=== PATIENT | male | born 1955 | race Caucasian/White ===

== ENCOUNTER 2019-05-01 11:55 | Observation (INO) | payer OTHER, SELFPAY ==
[2019-05-01] VITALS (15 sets, daily range): BP systolic 90–142; BP diastolic 50–91; PULSE 61–76; RESP 13–20; TEMP 35.9–37.7; O2SAT 93–98; BMI 31.0
--- NOTE | 2019-05-01 | PATH_ITS ---
[facility] Accession Number: [id number] . 01 Material submitted: . appendix - APPENDIX . 01 Clinical history: . ABD PAIN RT SIDE SINCE LAST NIGHT . 02 Diagnosis: Appendix, Appendectomy: Portion of cecum (4.0 cm in length) with no significant abnormality by gross examination. Appendix with acute appendicitis, serositis and features suggestive of rupture by gross examination. MRV 05/06/2019 0951 Local . 02 Electronically signed: . Mica Morin MD, Pathologist NPI- [id number] . 01 Gross description: . Received in formalin, labeled appendix, is a piece of cecum (4.0 x 2.2 x 1.2 cm) with an attached portion of appendix (length-3.3 cm, diameter-1.3 cm) and the distal half of the appendix (length-3.0 cm, diameter-0.9 cm). The cecal serosa is molina, smooth and shiny. The cecal mucosa is molina and unremarkable. The appendiceal serosa is keith-molina, focally eroded and partially covered in keith flaky friable exudate. The lumen contains red-brown solid friable material. The wall is up to 0.3 cm thick. The mesoappendix (up to 1.5 cm in depth) is unremarkable. No nodules, masses or lesions are identified. The resection margin is received stapled and is inked blue. Section code: (A1) resection margin with appendiceal orifice, provider service representative perpendicular sections; (A2) multiple provider service representative sections; (A3) one-half of the bivalved tip. ([id number]) /MRV 05/05/2019 1351 Local . 02 Pathologist provided ICD-10: K35.80, K35.20 . 02 CPT . 299296 Performed at: 01 [facility] [address] [place] [address], [place], [place] [id number] MD Geoff Bonilla MD Phone: [phone] Performed at: 02 [facility] [address] [place], [place] [id number] MD Yanely Alexander MD Phone: [phone]
[2019-05-01 12:16] LABS: Hematocrit 44.7 % (41-53); Hemoglobin 14.8 g/dL (13.5-17.5); Mean Corpuscular HGB Conc 33.2 % (30-36); Mean Corpuscular Hemoglobin 27.8 PG (26-34); Mean Corpuscular Volume 83.8 fL (80-100); Platelet Count 297 X10^3/uL (150-400); Red Blood Cell Count 5.34 X10^6/uL (4.5-5.9); Red Cell Distribution Width 15.4 % (11.6-14.8)
[2019-05-01 12:23] LABS: Add Manual Diff / Slide Review YES; Prothrombin Time 11.8 SECONDS (10.1-12.7); White Blood Cell Count 33.1 X10^3/uL (4.5-11.0)
[2019-05-01 12:25] LABS: PTT Partial Thromboplastin Tim 35 SECONDS (26.4-36.2)
[2019-05-01 12:31] LABS: Alanine Aminotransferase 30 IU/L (<50); Albumin 4.5 g/dL (3.5-5.0); Albumin Globulin Ratio 1.6 (1.0-2.8); Alkaline Phosphatase 57 U/L (38-126); Aspartate Aminotransferase 36 IU/L (17-59); BUN Creatinine Ratio 22.2 (6-22); Bilirubin Total 1.4 mg/dL (0.2-1.3); Blood Urea Nitrogen 20 mg/dL (9-20); Calcium 9.5 mg/dL (8.4-10.2); Carbon Dioxide 28 mmol/L (22-32); Chloride 100 mmol/L (98-107); Estimated Glomerular Filt Rate > 60.0 mL/min (>60); Globulin 2.9 g/dL (1.7-4.1); Glucose 121 mg/dL (80-110); HEMOLYSIS < 15 (0-50); Lipase 45 U/L (23-300); Potassium 4.2 mmol/L (3.4-5.1); Sodium 139 mmol/L (137-145); Total Protein 7.4 g/dL (6.3-8.2)
--- NOTE | 2019-05-01 12:38 | DI.CT.S_ITS ---
PROCEDURE: CT ABDOMEN PELVIS W CON INDICATIONS: RIGHT LOWER QUAD PAIN TECHNIQUE: After the administration of intravenous contrast, 5 mm thick sections acquired from the diaphragm to the symphysis. 5 mm coronal and sagittal reformats were acquired. For radiation dose reduction, the following was used: automated exposure control, adjustment of mA and/or kV according to patient size. COMPARISON: None. FINDINGS: Image quality: Excellent. ABDOMEN: Lung bases: Lung bases are clear. Heart size is normal. Solid organs: Liver is normal in size and enhancement. Gallbladder is within normal limits. Biliary system is non dilated. Pancreas enhances normally. Spleen is normal in size and enhancement. No adrenal nodules. Kidneys demonstrate normal size and enhancement, without hydronephrosis. Left peripelvic cysts are seen. Peritoneum and bowel: There is no bowel obstruction. There is significant enlargement of the appendix with diffuse appendiceal wall thickening and extensive periappendiceal fat stranding consistent with acute appendicitis. No discrete abscess collection. No free fluid or free air. No other area of abnormal bowel wall thickening is seen. Nodes and vessels: No retroperitoneal or mesenteric adenopathy by size criteria. Aorta and inferior vena cava are normal in size. Miscellaneous: No ventral hernias. PELVIS: Genitourinary: Bladder wall thickness is normal. Miscellaneous: No inguinal hernias or adenopathy. Bones: No suspicious bony lesions. No vertebral body compression fractures. IMPRESSION: 1. Finding is consistent with acute appendicitis. No evidence of perforation. No discrete abscess collection is seen. 2. Left peripelvic renal cysts. No hydronephrosis. Dictated by: Paulo Curtis M.D. on 05/01/2019 at 13:11 Approved by: Paulo Curtis M.D. on 05/01/2019 at 13:14
--- NOTE | 2019-05-01 12:41 | ED_ITS ---
HPI - Abdominal Pain <SUMI Ochoa - Last Filed: 05/01/19 21:58> General Chief Complaint: Abdominal Pain Stated Complaint: Abd pain rt side since lastnight Time Seen by Provider: 05/01/19 12:28 Source: patient Mode of arrival: Ambulatory History of Present Illness HPI narrative: 64yo male without a significant medical history, presents emergency department from the walk-in clinic complaining of right lower quadrant pain for the past 24-48 hours. Patient states last night he originally developed chills and umbilical abdominal pain that radiated to his right lower quadrant. Today he noticed the pain is localized dull aching pain his right lower quadrant but severity has decreased. He denies any fevers at home, nausea, vomiting, diarrhea, chest pain, dizziness, or other concerns. Patient states he usually has and normal white blood cell count as far as he is aware. Patient states he last ate a bowl of cereal around 6AM with a cup of coffee. He last had a few sips of water approximately around 1210PM today. Related Data Home Medications Medication Instructions Recorded Confirmed Otc Sleep Med 1 tab PO BEDTIME 05/01/19 05/01/19 Allergies Allergy/AdvReac Type Severity Reaction Status Date / Time No Known Drug Allergies Allergy Verified 06/19/18 19:09 Review of Systems <SUMI Ochoa - Last Filed: 05/01/19 21:58> Review of Systems Narrative: REVIEW OF SYSTEMS: GENERAL: Denies fever, chills, malaise, or wt. loss. HENT: No head trauma, sore throat, or dysphagia. EYES: No loss of vision, double vision, eye pain, or irritation. CARDIOVASCULAR: No chest pain, palpitations, or orthopnea. RESPIRATORY: No shortness of breath or cough. GASTROINTESTINAL: Complains of right lower quadrant abdominal pain, see HPI GENITOURINARY: No flank pain, urinary incontinence, hesitancy, frequency, or dysuria. MUSCULOSKELETAL: No pain, weakness, or trauma. INTEGUMENTARY: No rash, lesions, or pruritus. NEURO: No numbness, tingling, memory loss, confusion, or headaches. PSYCH: No behavior or mood changes. Patient History <SUMI Ochoa - Last Filed: 05/01/19 21:58> Medical History No significant medical problems (Acute) Social History household members: spouse Smoking Status: Never smoker alcohol intake: former Smoking Status: Never smoker Exam <SUMI Ochoa - Last Filed: 05/01/19 21:58> Initial Vital Signs Initial Vital Signs: Vital Signs Temperature 98.7 F 05/01/19 11:55 Pulse Rate 76 05/01/19 11:55 Respiratory Rate 05/01/19 11:55 Blood Pressure 140/67 05/01/19 11:55 Pulse Oximetry 98 05/01/19 11:55 PHYSICAL EXAMINATION: GENERAL: Well groomed, alert, and cooperative. Answers questions promptly and appropriately. Vital signs noted. HENT: Normocephalic, atraumatic. Hearing intact. Oral mucosa is pink and moist. EYES: Conjunctiva pink, sclera white, no periorbital swelling. CARDIOVASCULAR: S1 and S2 sounds normal. Regular rate and rhythm, no murmurs, clicks, or bruits. No pedal edema. RESPIRATORY: Normal respiratory rate, trachea midline, airway patent. No stridor, nasal flaring or accessory muscle use. Lungs are clear in all worley without wheeze, rhonchi, or crackles. GASTROINTESTINAL: Bowel sounds normoactive. Abdomen mother tenderness to right lower quadrant and umbilical area. No organomegaly, no palpable masses. GENITALURINARY: No flank tenderness. MUSCULOSKELETAL: Normal gait and coordination. Equal tone and mass bilaterally. EXTREMITIES: CMS intact, no pedal edema. SKIN: Warm, dry, soft, appropriate color for ethnicity. No lesions, rashes, or wounds to visualized areas. NEURO: Alert and Oriented X 3. Good coordination. No ataxia, or sensory deficits, or cognitive issues. PSYCH: Appropriate affect and mood. <Kelly Magallanes DO - Last Filed: 05/03/19 09:38> Initial Vital Signs Initial Vital Signs: Vital Signs Temperature 98.7 F 05/01/19 11:55 Pulse Rate 76 05/01/19 11:55 Respiratory Rate 05/01/19 11:55 Blood Pressure 140/67 05/01/19 11:55 Pulse Oximetry 98 05/01/19 11:55 Course <SUMI Ochoa - Last Filed: 05/01/19 21:58> Course Course Narrative: Patient was given IV fluids and Zosyn in the emergency department stay. He was able to ambulate without significant distress. Orders Ordered: Docusate Sodium (Colace) 100 mg PO BID [facility] Last Admin: 05/03/19 08:51 Dose: Not Given Documented by: Admin: 05/02/19 20:26 Dose: 100 mg Documented by: Admin: 05/02/19 08:21 Dose: 100 mg Documented by: ROSAS Heparin Sodium (Porcine) (Heparin) 5,000 unit SUBCUT BID [facility] Last Admin: 05/03/19 08:51 Dose: Not Given Documented by: Admin: 05/02/19 20:26 Dose: 5,000 unit Documented by: Admin: 05/02/19 08:22 Dose: 5,000 unit Documented by: ROSAS Hydromorphone HCl (Dilaudid) 0.5 mg IV Q4H PRN PRN Reason: Pain, Severe (7-10) Last Admin: 05/02/19 20:27 Dose: 0.5 mg Documented by: DEBBY Lactated Ringer's (Lactated Ringers) 1,000 mls @ 125 mls/hr IV CONT [facility] Last Admin: 05/03/19 06:54 Dose: 125 mls/hr Documented by: Infusion: 05/03/19 06:54 Dose: 125 mls/hr Documented by: Admin: 05/02/19 22:37 Dose: 125 mls/hr Documented by: Infusion: 05/02/19 21:47 Dose: 125 mls/hr Documented by: Admin: 05/02/19 13:47 Dose: 125 mls/hr Documented by: Infusion: 05/02/19 12:49 Dose: 125 mls/hr Documented by: Admin: 05/02/19 04:49 Dose: 125 mls/hr Documented by: Infusion: 05/02/19 04:49 Dose: 125 mls/hr Documented by: Admin: 05/01/19 22:25 Dose: 125 mls/hr Documented by: Infusion: 05/01/19 21:14 Dose: 0 mls/hr Documented by: Admin: 02/07/20 20:42 Dose: 125 mls/hr Documented by: Infusion: 05/01/19 20:42 Dose: 125 mls/hr Documented by: Admin: 05/01/19 17:37 Dose: 125 mls/hr Documented by: Infusion: 05/01/19 17:37 Dose: 125 mls/hr Documented by: Infusion: 05/01/19 17:12 Dose: 125 mls/hr Documented by: Admin: 05/01/19 15:12 Dose: 125 mls/hr Documented by: DARIUSZ Ondansetron HCl (Zofran) 4 mg IV Q4HR PRN PRN Reason: Nausea And Vomiting Discontinued Medications Acetaminophen (Tylenol) 975 mg PO NOW ONE Stop: 05/01/19 15:49 Last Admin: 05/01/19 17:38 Dose: 975 mg Documented by: KEYLA Bupivacaine HCl/Epinephrine Bitart (Sensorcaine 0.25% W/ Epi (Pf)) 30 ml INJ NOW ONE Stop: 05/01/19 19:58 Last Admin: 05/01/19 19:57 Dose: 30 ml Documented by: ELSI Celecoxib (Celebrex) 400 mg PO NOW ONE Stop: 05/01/19 15:49 Last Admin: 05/01/19 17:38 Dose: 400 mg Documented by: KEYLA Fentanyl (Sublimaze) 0 mcg IV Q5M PRN PRN Reason: Pain, Moderate (4-6) Gabapentin (Neurontin) 300 mg PO NOW ONE Stop: 05/01/19 15:49 Last Admin: 05/01/19 17:37 Dose: 300 mg Documented by: KEYLA Hydromorphone HCl (Dilaudid) 0 mg IV Q5MIN PRN PRN Reason: Pain, Mild (1-3) Sodium Chloride (Normal Saline 0.9%) 1,000 mls @ 1,000 mls/hr IV BOLUS ONE Stop: 05/01/19 13:45 Last Infusion: 05/01/19 14:24 Dose: 1,000 mls/hr Documented by: Admin: 05/01/19 13:04 Dose: 1,000 mls/hr Documented by: NYDIA Piperacillin/Tazobactam/Dextrose (Zosyn) 4.5 gm in 100 mls @ 200 mls/hr IV NOW ONE Stop: 05/01/19 13:53 Last Infusion: 05/01/19 14:24 Dose: 200 mls/hr Documented by: Admin: 05/01/19 13:54 Dose: 200 mls/hr Documented by: JORGE Lactated Ringer's (Lactated Ringers) 1,000 mls @ 42 mls/hr IV CONT KEVIN Last Admin: 05/01/19 22:23 Dose: Not Given Documented by: DEBBY Piperacillin/Tazobactam/Dextrose (Zosyn) 3.375 gm in 50 mls @ 100 mls/hr IV Q6H [facility] Last Admin: 05/02/19 20:26 Dose: 100 mls/hr Documented by: Infusion: 05/02/19 15:34 Dose: 100 mls/hr Documented by: Admin: 05/02/19 15:04 Dose: 100 mls/hr Documented by: Infusion: 05/02/19 13:43 Dose: 0 mls/hr Documented by: Admin: 05/02/19 08:22 Dose: 100 mls/hr Documented by: Infusion: 05/02/19 03:05 Dose: 0 mls/hr Documented by: Admin: 05/02/19 02:30 Dose: 100 mls/hr Documented by: Infusion: 05/01/19 19:38 Dose: 0 mls/hr Documented by: Admin: 05/01/19 19:31 Dose: 100 mls/hr Documented by: ZOILA Metoclopramide HCl (Reglan) 10 mg IV NOW PRN PRN Reason: Nausea And Vomiting Ondansetron HCl (Zofran) 4 mg IV NOW PRN PRN Reason: Nausea And Vomiting Consultations Consultation #1: I spoke with Dr. Fitzgerald who requested Zosyn, to remain on NPO status, and also agreed to admit patient. Consultation #2: Patient staffed with Dr. Magallanes Vital Signs Vital signs: Vital Signs - 8 hr 05/01/19 11:55 05/01/19 13:15 Temperature 98.7 F Pulse Rate 76 73 Respiratory Rate 20 19 Blood Pressure 140/67 Blood Pressure [Left Arm] 142/72 H Pulse Oximetry 98 98 <Kelly Magallanes DO - Last Filed: 05/03/19 09:38> Orders Ordered: Docusate Sodium (Colace) 100 mg PO BID [facility] Last Admin: 05/03/19 08:51 Dose: Not Given Documented by: Admin: 05/02/19 20:26 Dose: 100 mg Documented by: Admin: 05/02/19 08:21 Dose: 100 mg Documented by: ROSAS Heparin Sodium (Porcine) (Heparin) 5,000 unit SUBCUT BID [facility] Last Admin: 05/03/19 08:51 Dose: Not Given Documented by: Admin: 05/02/19 20:26 Dose: 5,000 unit Documented by: Admin: 05/02/19 08:22 Dose: 5,000 unit Documented by: ROSAS Hydromorphone HCl (Dilaudid) 0.5 mg IV Q4H PRN PRN Reason: Pain, Severe (7-10) Last Admin: 05/02/19 20:27 Dose: 0.5 mg Documented by: DEBBY Lactated Ringer's (Lactated Ringers) 1,000 mls @ 125 mls/hr IV CONT [facility] Last Admin: 05/03/19 06:54 Dose: 125 mls/hr Documented by: Infusion: 05/03/19 06:54 Dose: 125 mls/hr Documented by: Admin: 05/02/19 22:37 Dose: 125 mls/hr Documented by: Infusion: 05/02/19 21:47 Dose: 125 mls/hr Documented by: Admin: 05/02/19 13:47 Dose: 125 mls/hr Documented by: Infusion: 05/02/19 12:49 Dose: 125 mls/hr Documented by: Admin: 05/02/19 04:49 Dose: 125 mls/hr Documented by: Infusion: 05/02/19 04:49 Dose: 125 mls/hr Documented by: Admin: 05/01/19 22:25 Dose: 125 mls/hr Documented by: Infusion: 05/01/19 21:14 Dose: 0 mls/hr Documented by: Admin: 05/01/19 20:42 Dose: 125 mls/hr Documented by: Infusion: 05/01/19 20:42 Dose: 125 mls/hr Documented by: Admin: 05/01/19 17:37 Dose: 125 mls/hr Documented by: Infusion: 05/01/19 17:37 Dose: 125 mls/hr Documented by: Infusion: 05/01/19 17:12 Dose: 125 mls/hr Documented by: Admin: 05/01/19 15:12 Dose: 125 mls/hr Documented by: DARIUSZ Ondansetron HCl (Zofran) 4 mg IV Q4HR PRN PRN Reason: Nausea And Vomiting Discontinued Medications Acetaminophen (Tylenol) 975 mg PO NOW ONE Stop: 05/01/19 15:49 Last Admin: 05/01/19 17:38 Dose: 975 mg Documented by: KEYLA Bupivacaine HCl/Epinephrine Bitart (Sensorcaine 0.25% W/ Epi (Pf)) 30 ml INJ NOW ONE Stop: 05/01/19 19:58 Last Admin: 05/01/19 19:57 Dose: 30 ml Documented by: ELSI Celecoxib (Celebrex) 400 mg PO NOW ONE Stop: 05/01/19 15:49 Last Admin: 05/01/19 17:38 Dose: 400 mg Documented by: KEYLA Fentanyl (Sublimaze) 0 mcg IV Q5M PRN PRN Reason: Pain, Moderate (4-6) Gabapentin (Neurontin) 300 mg PO NOW ONE Stop: 05/01/19 15:49 Last Admin: 05/01/19 17:37 Dose: 300 mg Documented by: KEYLA Hydromorphone HCl (Dilaudid) 0 mg IV Q5MIN PRN PRN Reason: Pain, Mild (1-3) Sodium Chloride (Normal Saline 0.9%) 1,000 mls @ 1,000 mls/hr IV BOLUS ONE Stop: 05/01/19 13:45 Last Infusion: 05/01/19 14:24 Dose: 1,000 mls/hr Documented by: Admin: 05/01/19 13:04 Dose: 1,000 mls/hr Documented by: NYDIA Piperacillin/Tazobactam/Dextrose (Zosyn) 4.5 gm in 100 mls @ 200 mls/hr IV NOW ONE Stop: 05/01/19 13:53 Last Infusion: 05/01/19 14:24 Dose: 200 mls/hr Documented by: Admin: 05/01/19 13:54 Dose: 200 mls/hr Documented by: JORGE Lactated Ringer's (Lactated Ringers) 1,000 mls @ 42 mls/hr IV CONT [facility] Last Admin: 05/01/19 22:23 Dose: Not Given Documented by: DEBBY Piperacillin/Tazobactam/Dextrose (Zosyn) 3.375 gm in 50 mls @ 100 mls/hr IV Q6H [facility] Last Admin: 05/02/19 20:26 Dose: 100 mls/hr Documented by: Infusion: 05/02/19 15:34 Dose: 100 mls/hr Documented by: Admin: 05/02/19 15:04 Dose: 100 mls/hr Documented by: Infusion: 05/02/19 13:43 Dose: 0 mls/hr Documented by: Admin: 05/02/19 08:22 Dose: 100 mls/hr Documented by: Infusion: 05/02/19 03:05 Dose: 0 mls/hr Documented by: Admin: 05/02/19 02:30 Dose: 100 mls/hr Documented by: Infusion: 05/01/19 19:38 Dose: 0 mls/hr Documented by: Admin: 05/01/19 19:31 Dose: 100 mls/hr Documented by: ZOILA Metoclopramide HCl (Reglan) 10 mg IV NOW PRN PRN Reason: Nausea And Vomiting Ondansetron HCl (Zofran) 4 mg IV NOW PRN PRN Reason: Nausea And Vomiting Vital Signs Vital signs: Vital Signs - 8 hr 05/01/19 11:55 05/01/19 13:15 Temperature 98.7 F Pulse Rate 76 73 Respiratory Rate 20 19 Blood Pressure 140/67 Blood Pressure [Left Arm] 142/72 H Pulse Oximetry 98 98 MDM - Abdominal Pain <SUMI Ochoa - Last Filed: 05/01/19 21:58> Medical Records Attestation: I reviewed the patient's medical records. Lab Data Attestation: I reviewed the patient's lab results. Result diagrams: 05/03/19 05:00 05/01/19 12:08 Labs: Lab Results 05/01/19 05/01/19 05/01/19 Range/Units 12:08 12:08 12:08 WBC 33.1 H* (4.5-11.0) X10^3/uL RBC 5.34 (4.5-5.9) X10^6/uL Hgb 14.8 (13.5-17.5) g/dL Hct 44.7 (41-53) % MCV 83.8 (80-100) fL MCH 27.8 (26-34) PG MCHC 33.2 (30-36) % RDW 15.4 H (11.6-14.8) % Plt Count 297 (150-400) X10^3/uL Neut % (Auto) Not Reportable Lymph % (Auto) Not Reportable Rowan % (Auto) Not Reportable Eos % (Auto) Not Reportable Baso % (Auto) Not Reportable Lymph # (Auto) Not Reportable Rowan # (Auto) Not Reportable Baso # (Auto) Not Reportable Total Counted 100 Seg Neutrophils % 86.0 H (38-70) % Band Neutrophils % 3.0 (3-7) % Lymphocytes % (Manual) 3.0 L (25-45) % Atypical Lymphs % 3.0 H ( - 0) % Monocytes % (Manual) 4.0 (2-11) % Eosinophils % (Manual) 1.0 L (2-4) % Neutrophils # (Manual) 99377 H (5749-6556) /uL RBC Morphology See below Anisocytosis 1+ H PT 11.8 (10.1-12.7) SECONDS INR 1.0 (0.9-1.3) APTT 35 (26.4-36.2) SECONDS Sodium 139 (137-145) mmol/L Potassium 4.2 (3.4-5.1) mmol/L Chloride 100 (98-107) mmol/L Carbon Dioxide 28 (22-32) mmol/L BUN 20 (9-20) mg/dL Creatinine 0.90 (0.66-1.25) mg/dL Estimated GFR > 60.0 (>60) mL/min BUN/Creatinine Ratio 22.2 H (6-22) Glucose 121 H (80-110) mg/dL Calcium 9.5 (8.4-10.2) mg/dL Total Bilirubin 1.4 H (0.2-1.3) mg/dL AST 36 (17-59) IU/L ALT 30 (<50) IU/L Alkaline Phosphatase 57 (38-126) U/L Total Protein 7.4 (6.3-8.2) g/dL Albumin 4.5 (3.5-5.0) g/dL Globulin 2.9 (1.7-4.1) g/dL Albumin/Globulin Ratio 1.6 (1.0-2.8) Lipase 45 (23-300) U/L Imaging Data CT scan - abdomen/pelvis: Radiologist's Impression: [address] [address] [address] Scan Report Signed Patient: Damian Godoy HMR#: [id number] : 6Acct:[id number] Age/Sex: 64 / MDate of Service: 05/01/19 Loc: ED Accession Number: [id number] Procedure: CT abdomen pelvis w con Ordering Provider: Maine Chauhan PROCEDURE: CT ABDOMEN PELVIS W CON INDICATIONS: RIGHT LOWER QUAD PAIN TECHNIQUE: After the administration of intravenous contrast, 5 mm thick sections acquired from the diaphragm to the symphysis. 5 mm coronal and sagittal reformats were acquired. For radiation dose reduction, the following was used: automated exposure control, adjustment of mA and/or kV according to patient size. COMPARISON: None. FINDINGS: Image quality: Excellent. ABDOMEN: Lung bases: Lung bases are clear. Heart size is normal. Solid organs: Liver is normal in size and enhancement. Gallbladder is within normal limits. Biliary system is non dilated. Pancreas enhances normally. Spleen is normal in size and enhancement. No adrenal nodules. Kidneys demonstrate normal size and enhancement, without hydronephrosis. Left peripelvic cysts are seen. Peritoneum and bowel: There is no bowel obstruction. There is significant enlargement of the appendix with diffuse appendiceal wall thickening and extensive periappendiceal fat stranding consistent with acute appendicitis. No discrete abscess collection. No free fluid or free air. No other area of abnormal bowel wall thickening is seen. Nodes and vessels: No retroperitoneal or mesenteric adenopathy by size criteria. Aorta and inferior vena cava are normal in size. Miscellaneous: No ventral hernias. PELVIS: Genitourinary: Bladder wall thickness is normal. Miscellaneous: No inguinal hernias or adenopathy. Bones: No suspicious bony lesions. No vertebral body compression fractures. IMPRESSION: 1. Finding is consistent with acute appendicitis. No evidence of perforation. No discrete abscess collection is seen. 2. Left peripelvic renal cysts. No hydronephrosis. Dictated by: Paulo Curtis M.D. on 05/01/2019 at 13:11 Approved by: Paulo Curtis M.D. on 05/01/2019 at 13:14 [facility] Narrative Medical decision making narrative: This is a 64-year-old male presents to the emergency department for right lower quadrant pain for the past 2 days. Patient's exam was concerning for appendicitis, laboratory work that elevated white blood count of 33, and inflammatory changes on CT consistent with appendicitis. Less likely other acute abdominal etiology such as pancreatitis, cholecystitis, or incarcerated bowel due to lack of findings on CT and lack of pain in other areas on examination. Patient was admitted to Dr. Fitzgerald. He remained hemodynamically stable throughout the emergency department stay. He was given fluids and IV antibiotics and kept NPO. Patient agreed with plan of care verbalized understanding. <Kelly Magallanes, DO - Last Filed: 05/03/19 09:38> Lab Data Labs: Lab Results 05/01/19 05/01/19 05/01/19 Range/Units 12:08 12:08 12:08 WBC 33.1 H* (4.5-11.0) X10^3/uL RBC 5.34 (4.5-5.9) X10^6/uL Hgb 14.8 (13.5-17.5) g/dL Hct 44.7 (41-53) % MCV 83.8 (80-100) fL MCH 27.8 (26-34) PG MCHC 33.2 (30-36) % RDW 15.4 H (11.6-14.8) % Plt Count 297 (150-400) X10^3/uL Neut % (Auto) Not Reportable Lymph % (Auto) Not Reportable Rowan % (Auto) Not Reportable Eos % (Auto) Not Reportable Baso % (Auto) Not Reportable Lymph # (Auto) Not Reportable Rowan # (Auto) Not Reportable Baso # (Auto) Not Reportable Total Counted 100 Seg Neutrophils % 86.0 H (38-70) % Band Neutrophils % 3.0 (3-7) % Lymphocytes % (Manual) 3.0 L (25-45) % Atypical Lymphs % 3.0 H ( - 0) % Monocytes % (Manual) 4.0 (2-11) % Eosinophils % (Manual) 1.0 L (2-4) % Neutrophils # (Manual) 25889 H (7485-1300) /uL RBC Morphology See below Anisocytosis 1+ H PT 11.8 (10.1-12.7) SECONDS INR 1.0 (0.9-1.3) APTT 35 (26.4-36.2) SECONDS Sodium 139 (137-145) mmol/L Potassium 4.2 (3.4-5.1) mmol/L Chloride 100 (98-107) mmol/L Carbon Dioxide 28 (22-32) mmol/L BUN 20 (9-20) mg/dL Creatinine 0.90 (0.66-1.25) mg/dL Estimated GFR > 60.0 (>60) mL/min BUN/Creatinine Ratio 22.2 H (6-22) Glucose 121 H (80-110) mg/dL Calcium 9.5 (8.4-10.2) mg/dL Total Bilirubin 1.4 H (0.2-1.3) mg/dL AST 36 (17-59) IU/L ALT 30 (<50) IU/L Alkaline Phosphatase 57 (38-126) U/L Total Protein 7.4 (6.3-8.2) g/dL Albumin 4.5 (3.5-5.0) g/dL Globulin 2.9 (1.7-4.1) g/dL Albumin/Globulin Ratio 1.6 (1.0-2.8) Lipase 45 (23-300) U/L Discharge Plan Departure Patient Disposition: Admitted As Inpatient Clinical Impression: Acute appendicitis Qualifiers: Acute appendicitis type: other Qualified Code(s): K35.890 - Other acute appendicitis without perforation or gangrene Discharge Date/Time: 05/01/19 14:10 Instructions: DI for an Appendectomy, [facility]: Wound Care Referrals: Nate Milan MD [Primary Care Provider] - Maddie Fitzgerald MD [Physician] - (please make a follow up appointment in two weeks) Admit Date/Time: 05/01/19 13:39 Admit Provider: Maddie Fitzgerald
[2019-05-01 12:49] LABS: Neutrophils Absolute Manual 29459 /uL (3000-5900); Total Cells Counted 100
[2019-05-01 12:50] LABS: Anisocytosis 1+
[2019-05-01] MEDS: SODIUM CHLORIDE 0.9% 1,000 ML 1000 ML IV (13:04)
--- NOTE | 2019-05-01 13:28 | P.HP_ITS ---
History of Present Illness History of Present Illness Date Patient Seen: 05/01/19 Time Patient Seen: 13:28 Chief complaint: Abd pain rt side since lastnight Narrative: This is a 64yo man without a significant medical history, who presented to the ER today with 2 days of periumbilical pain which gradually became focal in the right lower quadrant this morning. He had some subjective chills. He denies any fevers at home, nausea, vomiting, diarrhea, chest pain, dizziness, or other concerns. In the ER he had a CT scan which is consistent with non perforated appendicitis. In the ER his white blood cell count was 33. He ate cereal it 6:00 a.m. this morning, and had some water and coffee this morning. He denies dysuria, constipation, diarrhea. ROS: Thirteen system review is otherwise negative other than as mentioned below and in HPI. PE: GENERAL: Well groomed and cooperative. Appears stated age. Answers questions promptly and appropriately. Vital signs noted. HENT: Normocephalic, atraumatic. Hearing intact. Oral mucosa is pink and moist. EYES: Conjunctiva pink, sclera white, no periorbital swelling. CARDIOVASCULAR: Regular rate. No pedal edema. RESPIRATORY: Non-tachypneic, breathing comfortably on room air. GASTROINTESTINAL: Abdomen soft and non-distended; focal tenderness to palpation in the right lower quadrant, negative Rovsing sign, no tenderness in the other quadrants GENITALURINARY: No flank tenderness. MUSCULOSKELETAL: Equal tone and mass bilaterally. SKIN: Warm, dry, soft, appropriate color for ethnicity. No other lesions, rashes, or wounds. NEURO: Alert and Oriented X 3. No gross sensory deficits, or cognitive issues. PSYCH: Appropriate affect and mood. Patient History Family & Social History Safety & Behavioral: Feels Safe in Current Yes Environment Tobacco & Substance use: Smoking Status Never smoker Meds Home Medications and Allergies Home Medications Medication Instructions Recorded Confirmed Type Otc Sleep Med 1 tab PO BEDTIME 05/01/19 05/01/19 History Allergies Allergy/AdvReac Type Severity Reaction Status Date / Time No Known Drug Allergies Allergy Verified 06/19/18 19:09 Exam Vital Signs (past 8 hours): - 05/01/19 11:55 05/01/19 13:15 Temperature 98.7 F Pulse Rate 76 73 Respiratory Rate 20 19 Blood Pressure 140/67 Blood Pressure [Left Arm] 142/72 H Pulse Oximetry 98 98 Oxygen Delivery Method Room Air,Nasal Cannula Objective ECG Impression: CT scan: Reviewed, Acute appendicitis, renal cysts Labs Result Diagrams: 05/01/19 12:08 05/01/19 12:08 Labs: Laboratory Results - last 24 hr 05/01/19 05/01/19 05/01/19 12:08 12:08 12:08 WBC 33.1 H* RBC 5.34 Hgb 14.8 Hct 44.7 MCV 83.8 MCH 27.8 MCHC 33.2 RDW 15.4 H Plt Count 297 Neut % (Auto) Not Reportable Lymph % (Auto) Not Reportable [place] % (Auto) Not Reportable Eos % (Auto) Not Reportable Baso % (Auto) Not Reportable Lymph # (Auto) Not Reportable [place] # (Auto) Not Reportable Baso # (Auto) Not Reportable Total Counted 100 Seg Neutrophils % 86.0 H Band Neutrophils % 3.0 Lymphocytes % (Manual) 3.0 L Atypical Lymphs % 3.0 H Monocytes % (Manual) 4.0 Eosinophils % (Manual) 1.0 L Neutrophils # (Manual) 54130 H RBC Morphology See below Anisocytosis 1+ H PT 11.8 INR 1.0 APTT 35 Sodium 139 Potassium 4.2 Chloride 100 Carbon Dioxide 28 BUN 20 Creatinine 0.90 Estimated GFR > 60.0 BUN/Creatinine Ratio 22.2 H Glucose 121 H Calcium 9.5 Total Bilirubin 1.4 H AST 36 ALT 30 Alkaline Phosphatase 57 Total Protein 7.4 Albumin 4.5 Globulin 2.9 Albumin/Globulin Ratio 1.6 Lipase 45 Assessment & Plan Assessment and plan (1) Acute appendicitis: Qualifiers: Acute appendicitis type: other Qualified Code(s): K35.890 - Other acute appendicitis without perforation or gangrene; K35.89 - Other acute appendicitis Current visit: Yes Status: Acute Assessment & Plan narrative: This is 64-year-old man with acute appendicitis. Options and alternatives for treatment were discussed. Risks and benefits of laparoscopic possible appendectomy were discussed with the patient including risk of bleeding, infection, damage to nearby structures, need for additional procedures, abscess, hernia, need for open operation, need for prolonged hospitalization. The patient desires to proceed with his appendectomy. Plan: IV fluids IV pain meds, antiemetics as needed IV Zosyn Plan for appendectomy this evening Time Spent With Patient Time with patient: 25 - 35 minutes Quality VTE Deep Vein Thrombosis/Pulmonary Embolism Present on Admission: No
[2019-05-01] MEDS: PIPERACILLIN-TAZO 4.5 GM/100 ML FROZ.PIGGY IV (13:54)
[2019-05-01 14:29] LABS: Appearance Urine UA CLEAR; Bilirubin Urine UA NEGATIVE (NEGATIVE); Color Urine UA YELLOW; Glucose Urine UA NEGATIVE (Negative); Ketones Urine UA NEGATIVE (NEGATIVE); Leukocyte Esterase Urine UA NEGATIVE (NEGATIVE); Nitrite Urine UA NEGATIVE (Negative); Occult Blood Urine UA NEGATIVE (Negative); Protein Urine UA NEGATIVE (Negative); Specific Gravity Urine UA 1.015 (1.000-1.035); Urobilinogen Urine UA 0.2 E.U./dL (0.2); pH Urine UA 6.5 (4.5-8.0)
[2019-05-01] MEDS: LACTATED RINGERS 1,000 ML 125 ML IV ×4 (15:12→22:25)
--- NOTE | 2019-05-01 15:24 | PC.ADMIT ---
[address] [facility] Admission Note: The patient,Damian Godoy,64 y/o, was given written information regarding hospital policies, unit procedures and contact persons. Patient's smoking status: Never smoker. Vital Signs - 8 hr 05/01/19 11:55 05/01/19 13:15 05/01/19 14:25 Temperature 98.7 F 99.0 F Pulse Rate 76 73 75 Respiratory Rate 20 19 16 Blood Pressure 140/67 140/91 H Blood Pressure [Left Arm] 142/72 H Pulse Oximetry 98 98 98 05/01/19 14:27 Temperature Pulse Rate 74 Respiratory Rate 17 Blood Pressure 140/71 Blood Pressure [Left Arm] Pulse Oximetry 98 Patient stated a pain level of 3/10, Dr Fitzgerald came in to see him and scheduled surgery for around 5pm. Locked up wallet, keys, and wedding ring in the safe, cellphone is still with patient. Patient is conversing easily and is pleasant. Patient's mother arrived at 3:20. Patient complains his pain is slightly increasing but is better if he stay off of his right side. NPO since breakfast this morning.
[2019-05-01] MEDS: GABAPENTIN 300 MG CAPSULE PO (17:37)
[2019-05-01] MEDS: CELECOXIB 200 MG CAPSULE 400 MG PO (17:38)
[2019-05-01] MEDS: ACETAMINOPHEN 325 MG TABLET 975 MG PO (17:38)
[2019-05-01] MEDS: PIPERACILLIN-TAZO 3.375 GM/50 ML FROZ.PIGGY IV (19:31)
--- NOTE | 2019-05-01 19:49 | SUR.OPER ---
Supine on padded OR bed, head on pillow, arm padded and tucked at side, legs uncrossed, safety belt at thigh, tape over blanket over lower legs .
[2019-05-01] MEDS: BUPIVACAINE 0.25% W/ EPI 30 ML VIAL INJ (19:57)
--- NOTE | 2019-05-01 20:43 | PM.OP.1 ---
Operative Date/Time/Diagnoses Date of procedure: 05/01/19 Time of procedure: 20:43 Pre-op diagnosis: Acute appendicitis Post-op diagnosis: other (acute appendicitis, thickened cecum, gangrenous appendix without perforation) Procedure & Clinicians Procedure: Laparoscopic appendectomy and partial cecectomy Same procedure as scheduled: Yes Indications: Gangrenous appendicitis, and thickened cecum Surgeon: Maddie Redmond Yes if Unassisted: Yes Anesthesia Type: General Operative Notes Findings: Gangrenous appendix, thickened cecum, no perforation, no abscess Specimen(s): other (Appendix and distal cecum) Estimated Blood Loss (mL): 5 Blood products transfused: none Procedure in detail: The patient was brought into the operating room and placed supine on the OR table. Sequential compression devices were placed on both legs and turned on. Appropriate perioperative antibiotics were given prior to the start of surgery. General anesthesia was induced the patient was intubated. Aldridge catheter was placed sterilely in the bladder. The abdomen was prepped and draped in sterile fashion. Surgical time-out was conducted. Local anesthetic was injected under the skin just superior to the umbilicus and a 5 mm vertical incision was made at this site. The umbilical stalk was grasped with a Prasanna and elevated. A Veress needle was passed through the fascia into proper position. The position was tested with a saline drop test which was appropriate for intra-abdominal Veress needle placement. The abdomen was then insufflated in the usual fashion. Once insufflated to 15 mm Hg the Veress needle was removed and a 5 mm optical trocar was placed under direct vision using a 5 mm 30 degree scope. Once the camera was inside the abdomen I took a look around. There was no injury from port placement. Two additional ports were placed in a similar fashion in the suprapubic position and left lower quadrant. The umbilical port was upsized to a 12 mm port. In the right lower quadrant there were thickened loops of bowel overlying the cecum, stuck in place with inflammatory adhesions. The loops of bowel were carefully from each other without injury to the bowel loops. Once the adherent bowel loops were taken down, the appendix was exposed. It was hard, thickened, and clearly necrotic. There was no abscess or perforation seen. The patient was placed in Trendelenburg position with right side up. Starting at the distal tip of the appendix I dissected it free from the abdominal wall and the colon using blunt and sharp dissection with [place] ligasure. Once I came back to the base of the appendix, I dealt with the surrounding phlegmon. I carefully dissected out, protecting the small bowel and the cecum. At no time were we near the ureter. After prolonged dissection the base of the appendix came fully into view where it came into the cecum. The cecum was firm and thickened where the appendix entered onto it. I could not simply take the appendix, but had to take part of the cecum in order to removed the entire abnormal structure associated with the appendix. A blue load 60 mm endoscopic stapler was brought into the field and used to transect the distal cecum and appendix. The staple line looked well closed and hemostatic. There was good hemostasis, and all free fluid and blood were suctioned out. There was no spillage of stool, no pus, and no abscess. I did not think a drain would be needed. I then used the laparoscopic suture Passer and closed the umbilical port site with 0 Vicryl suture through the fascia. At this point the insufflation was removed from the abdomen and the port sites were closed with, 3 O Vicryl in the subcutaneous layers, and 4 Monocryl in the skin. Each port site was sealed with Dermabond. Local anesthetic was given at each of the port sites and in the fascia. This concluded the procedure. At this point the needle sponge and instrument counts were correct. The appendix was passed off the table for pathology. Patient was awakened from anesthesia and extubated. She was transferred to the postanesthesia care unit in stable condition. Complications: none Post-operative Condition: stable Disposition: Acute Care
--- NOTE | 2019-05-01 21:15 | SUR.PHASEI ---
Stable PACU, no pain, no nausea, soft belly. Transported back to room 203.
--- NOTE | 2019-05-01 21:32 | SUR.PHASEI ---
Pt left with Trudy and left in stable condition.
--- NOTE | 2019-05-02 00:33 | PC.NURSE ---
Addendum entered by Karen Leon R.N. 05/02/19 04:54: Slept at intervals. Continues to deny pain. Is complaining of some dysuria with urination this morning; encouraged to increase po fluid intake and if dysuria continues to let RN or MD know. Original Note: Patient is alert and oriented. Breath sounds CTA with RA sat of 96%. HRR. Denies nausea. BT hypoactive but states he has passed flatus since return from surgery. Has been voiding per urinal; denies dysuria, frequency or urgency. Is able to move himself in bed. Instructed to call for assistance if needing to get out of bed due to IV line and SCD's; verbalizes understanding. Lap incisions to abdomen x 3 all well approximated, dermabonded and without redness. Wearing bilateral calf SCD's. Denies pain at present time.
[2019-05-02 00:46] VITALS: BP 111/67; PULSE 59; RESP 16; TEMP 36.2; O2SAT 94
[2019-05-02] MEDS: PIPERACILLIN-TAZO 3.375 GM/50 ML FROZ.PIGGY IV ×4 (02:30→20:26)
[2019-05-02 04:47] VITALS: BP 104/49; PULSE 59; RESP 18; TEMP 36.1; O2SAT 95
[2019-05-02] MEDS: LACTATED RINGERS 1,000 ML 125 ML IV ×3 (04:49→22:37)
[2019-05-02 06:10] LABS: Hematocrit 41.5 % (41-53); Hemoglobin 13.7 g/dL (13.5-17.5); Mean Corpuscular Hemoglobin 27.9 PG (26-34); Mean Corpuscular Volume 84.5 fL (80-100); Platelet Count 276 X10^3/uL (150-400); Red Blood Cell Count 4.91 X10^6/uL (4.5-5.9); Red Cell Distribution Width 15.7 % (11.6-14.8)
[2019-05-02 06:24] LABS: Add Manual Diff / Slide Review YES
[2019-05-02 06:25] LABS: White Blood Cell Count 32.2 X10^3/uL (4.5-11.0)
[2019-05-02 06:38] LABS: Neutrophils Absolute Manual 29946 /uL (3000-5900); Total Cells Counted 100
[2019-05-02 06:39] LABS: Anisocytosis 1+
[2019-05-02 07:30] VITALS: BP 116/72; PULSE 61; RESP 19; TEMP 36.6; O2SAT 95
[2019-05-02] MEDS: DOCUSATE 100 MG CAPSULE PO ×2 (08:21→20:26)
[2019-05-02] MEDS: HEPARIN 5,000 UNIT/ML VIAL 5000 UNIT SUBCUT ×2 (08:22→20:26)
--- NOTE | 2019-05-02 08:57 | PC.NURSE ---
Addendum entered by Mary Mckeon R.N. 05/02/19 14:54: Pts wbc 32.7... phone and stated that she will be up around 1630 after her next case to talk to patient about his labs and will decide if she wants him to go home this evening or tomorrow morning. Addendum entered by Mary Mckeon R.N. 05/02/19 12:22: Patient denies discomfort at this time. He just ate all of his lunch and denies nausea. Up and ambulated in the halls. will be back later to visit. Original Note: Pt denies pain, states that he does not need anything at this time. IVF infusing. into see patient and states that she is going to order some labs at 1400 and this will determine if patient can go home this afternoon. He has 3 small incision sites that are durmobonded together. Using urinal at bedside and ivf infusing.
--- NOTE | 2019-05-02 09:52 | P.PN_ITS ---
Subjective Subjective Date Patient Seen: 05/02/19 Time Patient Seen: 09:52 Interval history: No acute events overnight. Pt says he feels much better this AM. Denies fevers, chills, and says he does not need any pain meds. Exam Vital Signs (past 8 hours): - 05/02/19 04:47 05/02/19 07:30 Temperature 97.0 F L 97.9 F Pulse Rate 59 L 61 Respiratory Rate 18 19 Blood Pressure 104/49 L 116/72 Pulse Oximetry 95 95 Oxygen Delivery Method Room Air Oxygen Flow Rate 0 Narrative Exam Narrative: GENERAL: Alert, oriented, comfortable, nontoxic HENT: Normocephalic, atraumatic. Hearing intact. Oral mucosa is pink and moist. EYES: Conjunctiva pink, sclera white, no periorbital swelling. CARDIOVASCULAR: Regular rate. No pedal edema. RESPIRATORY: Non-tachypneic, breathing comfortably on room air. GASTROINTESTINAL: Abdomen soft and non-distended; incisions clean dry and intac t, appropriate tenderness to palpation for postop day 1, very minimal tenderness GENITALURINARY: No flank tenderness. MUSCULOSKELETAL: Equal tone and mass bilaterally. SKIN: Warm, dry, soft, appropriate color for ethnicity. No other lesions, rashes, or wounds. NEURO: Alert and Oriented X 3. No gross sensory deficits, or cognitive issues. PSYCH: Appropriate affect and mood. Objective Labs Result Diagrams: 05/02/19 05:49 05/01/19 12:08 Labs: Laboratory Results - last 24 hr 05/01/19 05/01/19 05/01/19 12:08 12:08 12:08 WBC 33.1 H* RBC 5.34 Hgb 14.8 Hct 44.7 MCV 83.8 MCH 27.8 MCHC 33.2 RDW 15.4 H Plt Count 297 Neut % (Auto) Not Reportable Lymph % (Auto) Not Reportable [place] % (Auto) Not Reportable Eos % (Auto) Not Reportable Baso % (Auto) Not Reportable Lymph # (Auto) Not Reportable [place] # (Auto) Not Reportable Baso # (Auto) Not Reportable Total Counted 100 Seg Neutrophils % 86.0 H Band Neutrophils % 3.0 Lymphocytes % (Manual) 3.0 L Atypical Lymphs % 3.0 H Monocytes % (Manual) 4.0 Eosinophils % (Manual) 1.0 L Basophils % (Manual) Neutrophils # (Manual) 12235 H RBC Morphology See below Anisocytosis 1+ H PT 11.8 INR 1.0 APTT 35 Sodium 139 Potassium 4.2 Chloride 100 Carbon Dioxide 28 BUN 20 Creatinine 0.90 Estimated GFR > 60.0 BUN/Creatinine Ratio 22.2 H Glucose 121 H Calcium 9.5 Total Bilirubin 1.4 H AST 36 ALT 30 Alkaline Phosphatase 57 Total Protein 7.4 Albumin 4.5 Globulin 2.9 Albumin/Globulin Ratio 1.6 Lipase 45 Urine Color Urine Appearance Urine pH Ur Specific [place] Urine Protein Urine Glucose (UA) Urine Ketones Urine Occult Blood Urine Nitrate Urine Bilirubin Urine Urobilinogen Ur Leukocyte Esterase 05/01/19 05/02/19 13:50 05:49 WBC 32.2 H* RBC 4.91 Hgb 13.7 Hct 41.5 MCV 84.5 MCH 27.9 MCHC 33.0 RDW 15.7 H Plt Count 276 Neut % (Auto) Not Reportable Lymph % (Auto) Not Reportable [place] % (Auto) Not Reportable Eos % (Auto) Not Reportable Baso % (Auto) Not Reportable Lymph # (Auto) Not Reportable [place] # (Auto) Not Reportable Baso # (Auto) Not Reportable Total Counted 100 Seg Neutrophils % 91.0 H Band Neutrophils % 2.0 L Lymphocytes % (Manual) 2.0 L Atypical Lymphs % Monocytes % (Manual) 4.0 Eosinophils % (Manual) Basophils % (Manual) 1.0 Neutrophils # (Manual) 49424 H RBC Morphology See below Anisocytosis 1+ H PT INR APTT Sodium Potassium Chloride Carbon Dioxide BUN Creatinine Estimated GFR BUN/Creatinine Ratio Glucose Calcium Total Bilirubin AST ALT Alkaline Phosphatase Total Protein Albumin Globulin Albumin/Globulin Ratio Lipase Urine Color Yellow Urine Appearance Clear Urine pH 6.5 Ur Specific [place] 1.015 Urine Protein Negative Urine Glucose (UA) Negative Urine Ketones Negative Urine Occult Blood Negative Urine Nitrate Negative Urine Bilirubin Negative Urine Urobilinogen 0.2 Ur Leukocyte Esterase Negative Assessment & Plan Assessment and plan (1) Status post appendectomy: Current visit: Yes Status: Acute (2) Acute appendicitis: Qualifiers: Acute appendicitis type: other Qualified Code(s): K35.890 - Other acute appendicitis without perforation or gangrene; K35.89 - Other acute appendicitis Current visit: Yes Status: Acute Assessment & Plan narrative: Patient looks well after his appendectomy last evening, but his white count is still high. Expected has not had a chance to come down since it was drawn less than 12 hours after his appendectomy. His appendix was gangrenous, which is a good explanation for his white count of 33 yesterday. We will go ahead and let him eat, and will continue his Zosyn for perioperative dosing up to 24 hours. We will recheck a CBC this afternoon, and if it is reassuring, we will consider letting him go home this afternoon. Stool softener DVT prophylaxis IV antibiotic CBC at 2:00 p.m. Ambulate frequently Dispo pending improved CBC, and reassuring vitals and exam this evening Time Spent With Patient Time with patient: 25 - 35 minutes Quality VTE Deep Vein Thrombosis/Pulmonary Embolism Present on Admission: No
[2019-05-02 12:06] VITALS: BP 107/81; PULSE 63; RESP 18; TEMP 37.2; O2SAT 95
[2019-05-02 14:08] LABS: Hematocrit 40.3 % (41-53); Hemoglobin 13.4 g/dL (13.5-17.5); Mean Corpuscular HGB Conc 33.3 % (30-36); Platelet Count 278 X10^3/uL (150-400); Red Cell Distribution Width 15.6 % (11.6-14.8)
[2019-05-02 14:14] LABS: Add Manual Diff / Slide Review YES; White Blood Cell Count 32.7 X10^3/uL (4.5-11.0)
[2019-05-02 15:20] VITALS: BP 110/59; PULSE 68; RESP 17; TEMP 37; O2SAT 96
[2019-05-02 15:47] LABS: Total Cells Counted 100
[2019-05-02 16:22] LABS: Neutrophils Absolute Manual 29430 /uL (3000-5900)
--- NOTE | 2019-05-02 16:22 | CM.DANOTE ---
Addendum entered by Melissa Bell LPN 05/03/19 11:01: Case again discussed in Team Rounds with a d/c to home order noted and team members noting that pt was doing well. A check in post Rounds shows that pt did leave for home at 1000. Original Note: Discharge Planning/Care Management DCP: assessment: case received, EMR reviewed. Discussed in Team Rounds. Pt is a 64 year old male who admitted yesterday afternoon to care of [facility]: Dr. Fitzgerald He was taken to surgery later that evening for a Laproscopic Appendectomy: gangrenous with no perforation or abscess found and a partial cecectomy. Payer: [employer] Admission status: In Review per UR SWHETA Chapman. A check in now show that pt is doing well and Dr. Fitzgerald will be up later this afternoon to see if pt is ok for d/c to home or if he needs to stay overnight. P: check in with pt is he is still here tomorrow and follow prn. CM Discharge Assessment Start: 05/02/19 16:20 Freq: Status: Active Protocol: Document 05/02/19 16:21 ITV (Rec: 05/02/19 16:21 ITV [id number]) Discharge Planning Assessment Advance Directives? No History Provided By Medical Record Prior Living Arrangements House Household Members spouse Is patient alert and oriented? Yes Discharge Plan Home Review Status In Process
[2019-05-02 16:23] LABS: RBC Morphology Normal Morphology
[2019-05-02 19:00] VITALS: BP 122/64; PULSE 66; RESP 17; O2SAT 96
[2019-05-02] MEDS: HYDROMORPHONE 0.5 MG INJ IV (20:27)
--- NOTE | 2019-05-03 01:19 | PC.NURSE ---
2240 Seen and assessed as needing new bag of IVF. Patient is alert and oriented. Breath sounds CTA. HRR. Denies nausea. BT present and is passing flatus. Lap incisions remain well approximated and without redness or drainage. Moving self in bed. Using urinal in bed and voiding well; denies dysuria, frequency or urgency. Refusing to wear SCD's so reminded to ankle wave when awake. Denies pain. Fall risk score is low but requested patient call for assist during night if needing to get out of bed and patient expresses agreement.
[2019-05-03 05:05] VITALS: BP 136/63; PULSE 68; RESP 16; TEMP 36.6; O2SAT 94
[2019-05-03 05:26] LABS: Hematocrit 40.1 % (41-53); Hemoglobin 13.1 g/dL (13.5-17.5); Mean Corpuscular HGB Conc 32.7 % (30-36); Mean Corpuscular Hemoglobin 27.8 PG (26-34); Mean Corpuscular Volume 85.1 fL (80-100); Platelet Count 259 X10^3/uL (150-400); Red Blood Cell Count 4.71 X10^6/uL (4.5-5.9); Red Cell Distribution Width 15.7 % (11.6-14.8); White Blood Cell Count 25.2 X10^3/uL (4.5-11.0)
[2019-05-03 05:28] LABS: Add Manual Diff / Slide Review YES
[2019-05-03 05:47] LABS: Neutrophils Absolute Manual 21168 /uL (3000-5900); Total Cells Counted 100
[2019-05-03 05:49] LABS: Anisocytosis 1+
[2019-05-03] MEDS: LACTATED RINGERS 1,000 ML 125 ML IV (06:54)
--- NOTE | 2019-05-03 07:29 | PM.DS.1 ---
History of Present Illness History of Present Illness Chief complaint: Abd pain rt side since lastnight Narrative: This is a 64yo man without a significant medical history, who presented to the ER today with 2 days of periumbilical pain which gradually became focal in the right lower quadrant this morning. He had some subjective chills. He denies any fevers at home, nausea, vomiting, diarrhea, chest pain, dizziness, or other concerns. In the ER he had a CT scan which is consistent with non perforated appendicitis. In the ER his white blood cell count was 33. He ate cereal it 6:00 a.m. this morning, and had some water and coffee this morning. He denies dysuria, constipation, diarrhea. ROS: Thirteen system review is otherwise negative other than as mentioned below and in HPI. PE: GENERAL: Well groomed and cooperative. Appears stated age. Answers questions promptly and appropriately. Vital signs noted. HENT: Normocephalic, atraumatic. Hearing intact. Oral mucosa is pink and moist. EYES: Conjunctiva pink, sclera white, no periorbital swelling. CARDIOVASCULAR: Regular rate. No pedal edema. RESPIRATORY: Non-tachypneic, breathing comfortably on room air. GASTROINTESTINAL: Abdomen soft and non-distended; focal tenderness to palpation in the right lower quadrant, negative Rovsing sign, no tenderness in the other quadrants GENITALURINARY: No flank tenderness. MUSCULOSKELETAL: Equal tone and mass bilaterally. SKIN: Warm, dry, soft, appropriate color for ethnicity. No other lesions, rashes, or wounds. NEURO: Alert and Oriented X 3. No gross sensory deficits, or cognitive issues. PSYCH: Appropriate affect and mood. Discharge Providers Provider Date of admission: 05/01/19 13:39 Discharge Date: 05/03/19 Primary care physician: Nate Milan MD Discharge provider: Maddie Fitzgerald MD Summary Hospital Course Discharge Diagnosis: Acute gangrenous, non perforated appendicitis Hospital Course: The patient was admitted from the ER, and was taken emergently to the operating room. He had an appendectomy. His white count remained very high for the subsequent 2 checks, but has now come down. He is afebrile, tolerating a diet, and pain is well controlled without pain medication. He is deemed stable for discharge home at this time. Status at Discharge Cognitive/behavioral status at discharge: at baseline, oriented Functional status at discharge: independent ambulation Overall status at discharge: patient is progressing back to baseline Time Spent with Patient Time spent: Greater than 30 minutes Exam Vital Signs (past 8 hours): - 05/03/19 05:05 Temperature 97.8 F Pulse Rate 68 Respiratory Rate 16 Blood Pressure 136/63 Pulse Oximetry 94 Oxygen Delivery Method Room Air Oxygen Flow Rate 0 Narrative Exam Narrative: GENERAL: Alert, oriented, comfortable HENT: Normocephalic, atraumatic. Hearing intact. Oral mucosa is pink and moist. EYES: Conjunctiva pink, sclera white, no periorbital swelling. CARDIOVASCULAR: Regular rate. No pedal edema. RESPIRATORY: Non-tachypneic, breathing comfortably on room air. GASTROINTESTINAL: Abdomen soft and non-distended, appropriate tenderness to palpation for postop day 2 from laparoscopic appendectomy, incisions clean dry and intact GENITALURINARY: No flank tenderness. MUSCULOSKELETAL: Equal tone and mass bilaterally. SKIN: Warm, dry, soft, appropriate color for ethnicity. No other lesions, rashes, or wounds. NEURO: Alert and Oriented X 3. No gross sensory deficits, or cognitive issues. PSYCH: Appropriate affect and mood. Objective Labs Result Diagrams: 05/03/19 05:00 05/01/19 12:08 Labs: Laboratory Results - last 24 hr 05/02/19 05/03/19 14:00 05:00 WBC 32.7 H* 25.2 H RBC 4.80 4.71 Hgb 13.4 L 13.1 L Hct 40.3 L 40.1 L MCV 84.0 85.1 MCH 28.0 27.8 MCHC 33.3 32.7 RDW 15.6 H 15.7 H Plt Count 278 259 Neut % (Auto) Not Reportable Not Reportable Lymph % (Auto) Not Reportable Not Reportable [place] % (Auto) Not Reportable Not Reportable Eos % (Auto) Not Reportable Not Reportable Baso % (Auto) Not Reportable Not Reportable Lymph # (Auto) Not Reportable Not Reportable [place] # (Auto) Not Reportable Not Reportable Baso # (Auto) Not Reportable Not Reportable Total Counted 100 100 Seg Neutrophils % 90.0 H 81.0 H Band Neutrophils % 3.0 Lymphocytes % (Manual) 5.0 L 9.0 L Atypical Lymphs % 5.0 H 2.0 H Monocytes % (Manual) 4.0 Basophils % (Manual) 1.0 Neutrophils # (Manual) 42555 H 57021 H RBC Morphology Normal morphology See below Anisocytosis 1+ H Discharge Plan Discharge Plan Patient Disposition: Home Discharge orders & Medications Prescriptions: Continued Otc Sleep Med 1 tab PO BEDTIME RF: 0 Follow up/Referrals: Nate Milan MD [Primary Care Provider] - Maddie Fitzgerald MD [Physician] - (please make a follow up appointment in two weeks) Diet/Activity/Treatments Diet: Diet as Tolerated Activity: No lifting more than 10 lbs or straining the abdominal wall for four weeks. Skin/Wound/Dressing Care Report to your healthcare provider any signs of infection, such as:: chills, fever, night sweats, increased pain, unusual drainage and unusual redness Visit Report/Discharge Packet Instructions: DI for an Appendectomy, [facility]: [facility] Discharge Data Primary Care Provider: Nate Milan Attending Provider: Maddie Fitzgerald Admit Date/Time: 05/01/19 13:39 Quality VTE Deep Vein Thrombosis/Pulmonary Embolism Present on Admission: No
--- NOTE | 2019-05-03 08:07 | PC.NURSE ---
Assess- Patient is awake and ready to be discharged home. phoned and has already put discharge orders in for patient. He would like to leave around 10:00 AM. He has 3 small puncture sites to his lower abdomen that are durmobonded together without any drainage. Patient gets up with stand by assist and has been steady and ambulates out in the halls. His will be here to pick patient up later.
[2019-05-03 08:53] VITALS: BP 115/67; PULSE 58; RESP 17; TEMP 36.6; O2SAT 97
== END 2019-05-03 09:54 | disposition home or self-care (01) ==
LOC: ED 13:36 → AC 14:37
PROVIDERS: Emergency Medicine; Admitting Provider Surgery; Emergency Provider Nurse Practitioner; Family Provider Family Medicine; PCP Family Medicine; Referring Provider Nurse Practitioner; Visit Provider Surgery
PROC: 0DTJ4ZZ Resection of Appendix, Percutaneous Endoscopic Approach (ICD-10-PCS; CPT 44970; principal; 2019-05-01 17:30)
DX: K35.891 Other acute appendicitis without perforation, with gangrene (principal); R10.31 Right lower quadrant pain
CPT/HCPCS: 44970; 36415; 74177; 80053; 81003; 82962; 83690; 85025; 85610; 85730; 93005; 94762; 96361; 96365; 96366; 96375; 99220; 99284; 99285; G0378; J1100; J1170; J1644; J2405; J2543; J2704; J3010; Q9967

== ENCOUNTER → 2020-05-31 07:33 | Outpatient (CLI) | payer OTHER, SELFPAY ==
[2019-05-01 14:29] VITALS: BMI 31.0
--- NOTE | 2020-05-31 | DI.RAD.S_ITS ---
PROCEDURE: XR CHEST 2V INDICATIONS: Cough, shortness of breath, weight loss TECHNIQUE: 2 views of the chest were acquired. COMPARISON: [facility], CT, CT ABDOMEN PELVIS W CON, 05/01/2019, 12:34. FINDINGS: Surgical changes and devices: None. Lungs and pleura: Lungs are clear, aside from mild left basilar streaky opacity. No pleural effusions or pneumothorax. Mediastinum: Mediastinal contours are normal. Heart size is normal. Bones and chest wall: No suspicious bony abnormalities. Soft tissues appear unremarkable. IMPRESSION: Mild left basilar subsegmental atelectasis versus scarring; otherwise no acute cardiopulmonary disease. Dictated by: Demario OSUNA Interpreted: Heidy Lucero MD on 05/31/2020 at 9:47 Approved by: Heidy Lucero M.D. on 05/31/2020 at 11:57
[2020-05-31 08:25] LABS: Hematocrit 31.2 % (41-53); Hemoglobin 10.1 g/dL (13.5-17.5); Mean Corpuscular HGB Conc 32.5 % (30-36); Mean Corpuscular Hemoglobin 29.2 PG (26-34); Mean Corpuscular Volume 89.9 fL (80-100); Platelet Count 190 X10^3/uL (150-400); Red Blood Cell Count 3.47 X10^6/uL (4.5-5.9); Red Cell Distribution Width 17.5 % (11.6-14.8)
[2020-05-31 08:28] LABS: Alanine Aminotransferase 21 IU/L (<50); Albumin 4.3 g/dL (3.5-5.0); Albumin Globulin Ratio 1.7 (1.0-2.8); Alkaline Phosphatase 78 U/L (38-126); Aspartate Aminotransferase 42 IU/L (17-59); BUN Creatinine Ratio 25.5 (6-22); Bilirubin Total 0.6 mg/dL (0.2-1.3); Blood Urea Nitrogen 28 mg/dL (9-20); Calcium 9.5 mg/dL (8.4-10.2); Carbon Dioxide 30 mmol/L (22-32); Chloride 103 mmol/L (98-107); Cholesterol 127 mg/dL (140-199); Estimated Glomerular Filt Rate > 60.0 mL/min (>60); Globulin 2.5 g/dL (1.7-4.1); Glucose 106 mg/dL (80-110); HDL Cholesterol 26 mg/dL (40-60); HEMOLYSIS < 15 (0-50); LDL Cholesterol Calculated 81 mg/dL (<100); Sodium 139 mmol/L (137-145); Total Protein 6.8 g/dL (6.3-8.2); Triglycerides 102 mg/dL (35-150)
[2020-05-31 08:33] LABS: Add Manual Diff / Slide Review YES
[2020-05-31 08:43] LABS: Neutrophils Absolute Manual 145920 /uL (3000-5900); Total Cells Counted 100
[2020-05-31 08:44] LABS: Anisocytosis 2+
[2020-05-31 08:58] LABS: Ferritin 321 ng/mL (18-464)
--- NOTE | 2020-06-01 11:22 | ONC.MSW ---
Description: New Referral Navigation T/C Reason for Referral: Acute Leukocytosis: 3-month hx weight loss, night sweats, couph. Activity: Called pt to confirm that we've received his referral, assess acuity, medical status, and immediate needs. Pt is being referred due to very high WBC, as well as the symptoms noted above. His most recent x-ray was negative for abnormal findings. 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 Griffin to review his labs in order to clarify acuity-Dr. Griffin feels that this is urgent and requested that the patient be seen within 1-week. Confirmed his initial consult time for 06/08 at 11:00am. No further needs identified at this time.
[2020-06-01 16:50] LABS: SARS-CoV19- IgM Negative (Negative)
[2020-06-02 10:36] LABS: SARS CoV19 IgA Negative (Negative)
[2020-06-08 13:38] LABS: SARS CoV19 IgG Negative
== END ==
PROVIDERS: Family Provider Family Medicine; PCP Physician Assistant; Referring Provider Physician Assistant; Visit Provider Physician Assistant
DX: R05 Cough (principal); R06.02 Shortness of breath; R63.4 Abnormal weight loss; R20.9 Unspecified disturbances of skin sensation; E78.2 Mixed hyperlipidemia; Z20.822 Contact with and (suspected) exposure to COVID-19
CPT/HCPCS: 36415; 71046; 80053; 80061; 82728; 84443; 85007; 85025; 86769

== ENCOUNTER 2020-06-10 19:53 | Observation (INO) | payer OTHER, SELFPAY ==
[2019-05-01 14:29] VITALS: BMI 31.0
[2020-06-10 20:00] VITALS: BP 114/59; PULSE 86; RESP 20; TEMP 39.4; O2SAT 94; BMI 28.8
--- NOTE | 2020-06-10 20:06 | DI.RAD.S_ITS ---
PROCEDURE: XR CHEST 2V INDICATIONS: fever, chemo, cough TECHNIQUE: 2 views of the chest were acquired. COMPARISON: [facility], CR, XR CHEST 2V, 05/31/2020, 7:59. FINDINGS: Surgical changes and devices: None. Lungs and pleura: Lungs are clear. No pleural effusions or pneumothorax. Mediastinum: Mildly tortuous thoracic aorta with aortic arch calcifications are seen. Heart size is enlarged. Bones and chest wall: No suspicious bony abnormalities. Soft tissues appear unremarkable. IMPRESSION: No acute cardiopulmonary pathology. Dictated by: Paulo Curtis M.D. on 06/10/2020 at 20:24 Approved by: Paulo Curtis M.D. on 06/10/2020 at 20:26
[2020-06-10] MEDS: SODIUM CHLORIDE 0.9% 1,000 ML 1000 ML IV (20:30)
[2020-06-10 20:41] LABS: Hematocrit 29.6 % (41-53); Hemoglobin 9.6 g/dL (13.5-17.5); Mean Corpuscular HGB Conc 32.3 % (30-36); Mean Corpuscular Hemoglobin 28.8 PG (26-34); Mean Corpuscular Volume 89.2 fL (80-100); Platelet Count 161 X10^3/uL (150-400); Red Blood Cell Count 3.32 X10^6/uL (4.5-5.9); Red Cell Distribution Width 17.2 % (11.6-14.8)
[2020-06-10 20:44] LABS: Lactate (Lactic Acid) 0.6 mmol/L (0.7-2.1)
[2020-06-10 20:45] LABS: Alanine Aminotransferase 21 IU/L (<50); Albumin 3.9 g/dL (3.5-5.0); Albumin Globulin Ratio 1.6 (1.0-2.8); Alkaline Phosphatase 74 U/L (38-126); Aspartate Aminotransferase 41 IU/L (17-59); BUN Creatinine Ratio 19.3 (6-22); Bilirubin Total 0.6 mg/dL (0.2-1.3); Blood Urea Nitrogen 22 mg/dL (9-20); Calcium 9.3 mg/dL (8.4-10.2); Carbon Dioxide 28 mmol/L (22-32); Chloride 102 mmol/L (98-107); Estimated Glomerular Filt Rate > 60.0 mL/min (>60); Globulin 2.4 g/dL (1.7-4.1); Glucose 130 mg/dL (80-110); HEMOLYSIS < 15 (0-50); Potassium 4.2 mmol/L (3.4-5.1); Sodium 136 mmol/L (137-145); Total Protein 6.3 g/dL (6.3-8.2)
[2020-06-10 20:49] LABS: White Blood Cell Count 273.3 X10^3/uL (4.5-11.0)
[2020-06-10 20:50] LABS: Add Manual Diff / Slide Review YES
--- NOTE | 2020-06-10 20:54 | ED_ITS ---
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 He denies runny nose, sore throat, trouble breathing or chest pain. He has had no nausea, vomiting or diarrhea. He denies abdominal pain, dysuria, frequency or urgency. He took his 1st dose of hydroxyurea this morning. He recently had a bone marrow biopsy to confirm diagnosis. His primary care provider is Alexander Calderon primary medical oncologist is Dr. Griffin. He denies recent travel or exposure to other ill persons. Patient took Tyelnol just [facility] complaint: fever Onset (ago): hour(s) Maximum Temperature: 104 F Temperature Source: oral and tympanic Context: on chemotherapy Associated symptoms: cough Relieving factors: nothing Exacerbating factors: nothing Treatments prior to arrival fever: acetaminophen Related Data Home Medications Medication Instructions Recorded Confirmed diphenhydramine HCl [Benadryl] 25 mg PO BEDTIME PRN 06/08/20 06/08/20 ibuprofen [Advil] 400 mg PO Q8H PRN 06/08/20 06/08/20 [id number]-herb 124 1 ea PO DAILY 06/08/20 06/08/20 [Airborne (ascorbic acid)] multivitamin 1 tab PO DAILY 06/08/20 06/08/20 Previous Rx's Medication Instructions Recorded allopurinol 300 mg PO DAILY #30 tab 06/08/20 hydroxyurea 1,000 mg PO BID #100 cap 06/08/20 Allergies Allergy/AdvReac Type Severity Reaction Status Date / Time No Known Drug Allergies Allergy Verified 06/10/20 20:06 Review of Systems Constitutional Constitutional: Denies chills, Denies fatigue, Reports fever(s), Denies frequent falls, Denies lethargy and Denies weakness Eyes Eyes: Denies change in vision, Denies eye discharge, Denies irritation and Denies loss of vision ENT Ears, Nose, Mouth, and Throat: Denies change in voice, Denies dizziness, Denies neck pain, Denies sore throat and Denies throat swelling Cardiovascular Cardiovascular: Denies chest pain, Denies irregular heart rhythm, Denies lightheadedness, Denies palpitations, Denies dyspnea, Denies dyspnea on exertion and Denies orthopnea Respiratory Respiratory: Reports cough, Denies dyspnea, Denies dyspnea on exertion and Denies wheezing Gastrointestinal Gastrointestinal: Denies abdominal pain, Denies change in bowel habits, Denies diarrhea, Denies nausea and Denies vomiting Musculoskeletal Musculoskeletal: Denies neck pain and Denies numbness Integumentary/Breasts Skin/Breast: Denies pruritus, Denies erythema, Denies rash and Denies wounds Neurologic Neurologic: Denies behavioral changes, Denies confusion, Denies dizziness, Denies frequent falls, Denies loss of vision, Denies numbness and Denies weakness Psychiatric Psychiatric: Denies anxiety, Denies behavioral changes, Denies confusion, Denies depression, Denies homicidal ideation and Denies suicidal ideation Endocrine Endocrine: Denies fatigue, Denies flushing and Denies palpitations Hematologic/Lymphatic Hematologic/Lymphatic: Denies easy bruising Allergic/Immunologic Allergic/Immunologic: Denies urticaria, Denies throat swelling and Denies wheezing Patient History Medical History No significant medical problems Social History household members: spouse Smoking Status: Never smoker alcohol intake: former Smoking Status: Never smoker Substance Use Type: does not use Exam Narrative Exam Narrative: GENERAL: [65] year old patient appears stated age. Well- nourished, well-developed patient, in mild distress. HEAD: Atraumatic. Normocephalic. EYES: Pupils equal round and reactive. Extraocular motions intact. No scleral icterus. No injection or drainage. ENT: Nose without bleeding, purulent drainage. Throat without erythema, tonsillar hypertrophy or exudate. Airway patent. NECK: Trachea midline. Non tender CARDIOVASCULAR: Regular rate and rhythm without murmurs, gallops, or rubs. RESPIRATORY: Clear to auscultation. Breath sounds equal bilaterally. No wheezes, rales, or rhonchi. GASTROINTESTINAL: Abdomen soft, non-tender, nondistended. EXTREMITIES: No edema or joint tenderness. BACK: Nontender without deformity or crepitance. No flank tenderness. NEURO: AOx3. SKIN: No rash or erythema of visible areas Initial Vital Signs Initial Vital Signs: Vital Signs Temperature 103.0 F H 06/10/20 20:00 Pulse Rate 86 06/10/20 20:00 Respiratory Rate 20 06/10/20 20:00 Blood Pressure 114/59 L 06/10/20 20:00 Pulse Oximetry 94 06/10/20 20:00 Course Orders Ordered: ED Orders 06/10/20 20:06 XR chest 2V Stat 06/10/20 20:22 Complete Blood Count AUTO DIFF Stat Comprehensive Metabolic Panel Stat Lactate (Lactic Acid) Stat Uric Acid Stat 06/10/20 20:47 Respiratory Panel (Film Array) Stat 06/10/20 20:58 Blood Culture Stat Levofloxacin (Levaquin) 750 mg in 150 mls @ 100 mls/hr IV NOW ONE Stop: 06/10/20 23:47 Last Admin: 06/10/20 22:26 Dose: 100 mls/hr Documented by: MELINDA Discontinued Medications Hydroxyurea (Hydroxyurea 500 Mg Capsule) 1,000 mg PO NOW ONE Stop: 06/10/20 22:20 Last Admin: 06/10/20 22:30 Dose: 1,000 mg Documented by: MELINDA Sodium Chloride (Normal Saline 0.9%) 1,000 mls @ 1,000 mls/hr IV BOLUS ONE Stop: 06/10/20 21:05 Last Infusion: 06/10/20 23:06 Dose: 0 mls/hr Documented by: Admin: 06/10/20 20:30 Dose: 1,000 mls/hr Documented by: DORINA Consultations Consultation #1: call to Dr. Freitas (steam fitter supervisor Oncology) to discuss the case. His strong recommendation is to keep patient overnight for monitoring. He recommends continued treatment with Hydroxyurea and also recommends broadspectrum ABX. He is donkey doctor over the weekend and happy to play a role in consultation if needed. Consultation #2: hospitalist happy to accept Vital Signs Vital signs: Vital Signs - 8 hr 06/10/20 20:00 06/10/20 22:30 06/10/20 22:47 Temperature 103.0 F H 99 F Pulse Rate 86 Respiratory Rate 20 Blood Pressure 114/59 L 105/57 L Pulse Oximetry 94 06/10/20 22:48 Temperature Pulse Rate 66 Respiratory Rate Blood Pressure Pulse Oximetry 94 MDM - Fever Lab Data Result diagrams: 06/10/20 20:22 06/10/20 20:22 Labs: Lab Results 06/10/20 06/10/20 06/10/20 Range/Units 20:22 20:22 20:22 WBC 273.3 H* (4.5-11.0) X10^3/uL RBC 3.32 L (4.5-5.9) X10^6/uL Hgb 9.6 L (13.5-17.5) g/dL Hct 29.6 L (41-53) % MCV 89.2 (80-100) fL MCH 28.8 (26-34) PG MCHC 32.3 (30-36) % RDW 17.2 H (11.6-14.8) % Plt Count 161 (150-400) X10^3/uL Neut % (Auto) Natural Science Manager Lymph % (Auto) Natural Science Manager [place] % (Auto) Natural Science Manager Eos % (Auto) Natural Science Manager Baso % (Auto) Natural Science Manager Neut # (Auto) Natural Science Manager Lymph # (Auto) Natural Science Manager [place] # (Auto) Natural Science Manager Eos # (Auto) Natural Science Manager Baso # (Auto) Natural Science Manager Total Counted 100 Seg Neutrophils % 21.0 L (38-70) % Band Neutrophils % 36.0 H (3-7) % Lymphocytes % (Manual) 3.0 L (25-45) % Monocytes % (Manual) 1.0 L (2-11) % Eosinophils % (Manual) 2.0 (2-4) % Basophils % (Manual) 1.0 (0-1) % Metamyelocytes % 13.0 H (-0) % Myelocytes % 15.0 H (-0) % Promyelocytes % 6.0 H (-0) % Blast Cells % 2.0 H (-0) % Neutrophils # (Manual) 067041 H (3562-1433) /uL Nucleated RBCs 2 H ( - 0) #/Diff Platelet Estimate Decreased on smear RBC Morphology Normal morphology Sodium 136 L (137-145) mmol/L Potassium 4.2 (3.4-5.1) mmol/L Chloride 102 (98-107) mmol/L Carbon Dioxide 28 (22-32) mmol/L BUN 22 H (9-20) mg/dL Creatinine 1.14 (0.66-1.25) mg/dL Estimated GFR > 60.0 (>60) mL/min BUN/Creatinine Ratio 19.3 (6-22) Glucose 130 H (80-110) mg/dL Lactate 0.6 L (0.7-2.1) mmol/L Uric Acid (3.5-8.5) mg/dL Calcium 9.3 (8.4-10.2) mg/dL Total Bilirubin 0.6 (0.2-1.3) mg/dL AST 41 (17-59) IU/L ALT 21 (<50) IU/L Alkaline Phosphatase 74 (38-126) U/L Total Protein 6.3 (6.3-8.2) g/dL Albumin 3.9 (3.5-5.0) g/dL Globulin 2.4 (1.7-4.1) g/dL Albumin/Globulin Ratio 1.6 (1.0-2.8) Chlamy pneumoniae PCR (Not Detect) Adenovirus (PCR) (Not Detect) B. pertussis DNA (PCR) (Not Detecte) B.parapertussis DNA PCR (Not Detecte) Coronavirus OC43 (PCR) (Not Detect) Coronavirus HKU1 (PCR) (Not Detect) Coronavirus 229E (PCR) (Not Detect) SARS-CoV-2 (PCR) (Not Detecte) Coronavirus NL63 (PCR) (Not Detect) Human Metapneumovir PCR (Not Detect) Influenza Type A (PCR) (Not Detect) Influenza Type B (PCR) (Not Detect) M. pneumoniae (PCR) (Not Detect) Parainfluenza 1 (PCR) (Not Detect) Parainfluenza 2 (PCR) (Not Detect) Parainfluenza 3 (PCR) (Not Detect) Parainfluenza 4 (PCR) (Not Detect) RSV (PCR) (Not Detect) Entero/Rhino (PCR) (Not Detect) 06/10/20 06/10/20 Range/Units 20:22 20:47 WBC (4.5-11.0) X10^3/uL RBC (4.5-5.9) X10^6/uL Hgb (13.5-17.5) g/dL Hct (41-53) % MCV (80-100) fL MCH (26-34) PG MCHC (30-36) % RDW (11.6-14.8) % Plt Count (150-400) X10^3/uL Neut % (Auto) Lymph % (Auto) [place] % (Auto) Eos % (Auto) Baso % (Auto) Neut # (Auto) Lymph # (Auto) [place] # (Auto) Eos # (Auto) Baso # (Auto) Total Counted Seg Neutrophils % (38-70) % Band Neutrophils % (3-7) % Lymphocytes % (Manual) (25-45) % Monocytes % (Manual) (2-11) % Eosinophils % (Manual) (2-4) % Basophils % (Manual) (0-1) % Metamyelocytes % (-0) % Myelocytes % (-0) % Promyelocytes % (-0) % Blast Cells % (-0) % Neutrophils # (Manual) (4789-8800) /uL Nucleated RBCs ( - 0) #/Diff Platelet Estimate RBC Morphology Sodium (137-145) mmol/L Potassium (3.4-5.1) mmol/L Chloride (98-107) mmol/L Carbon Dioxide (22-32) mmol/L BUN (9-20) mg/dL Creatinine (0.66-1.25) mg/dL Estimated GFR (>60) mL/min BUN/Creatinine Ratio (6-22) Glucose (80-110) mg/dL Lactate (0.7-2.1) mmol/L Uric Acid 7.1 (3.5-8.5) mg/dL Calcium (8.4-10.2) mg/dL Total Bilirubin (0.2-1.3) mg/dL AST (17-59) IU/L ALT (<50) IU/L Alkaline Phosphatase (38-126) U/L Total Protein (6.3-8.2) g/dL Albumin (3.5-5.0) g/dL Globulin (1.7-4.1) g/dL Albumin/Globulin Ratio (1.0-2.8) Chlamy pneumoniae PCR Not detected (Not Detect) Adenovirus (PCR) Not detected (Not Detect) B. pertussis DNA (PCR) Not detected (Not Detecte) B.parapertussis DNA PCR Not detected (Not Detecte) Coronavirus OC43 (PCR) Not detected (Not Detect) Coronavirus HKU1 (PCR) Not detected (Not Detect) Coronavirus 229E (PCR) Not detected (Not Detect) SARS-CoV-2 (PCR) Not detected (Not Detecte) Coronavirus NL63 (PCR) Not detected (Not Detect) Human Metapneumovir PCR Not detected (Not Detect) Influenza Type A (PCR) Not detected (Not Detect) Influenza Type B (PCR) Not detected (Not Detect) M. pneumoniae (PCR) Not detected (Not Detect) Parainfluenza 1 (PCR) Not detected (Not Detect) Parainfluenza 2 (PCR) Not detected (Not Detect) Parainfluenza 3 (PCR) Not detected (Not Detect) Parainfluenza 4 (PCR) Not detected (Not Detect) RSV (PCR) Not detected (Not Detect) Entero/Rhino (PCR) Not detected (Not Detect) Urine Dip Bedside Urine Glucose Negative Bedside Urine Bilirubin - Negative Bedside Urine Ketone - Negative Urine Specific [place] 1.020 Bedside Urine Occult Blood - Negative Bedside Urine pH 6.0 Bedside Urine Protein - Negative Bedside Urine Urobilinogen - Negative Bedside Urine Nitrite - Negative Bedside Urine Leukocytes - Negative Esterase Imaging Data Chest x-ray: Radiologist's Impression: [address] [id number] ReportSigned Patient: Damian Godoy R#: [id number]: 1955cct:[id number]/Sex: 65 / MDate of Service: 06/10/20Loc: EDAccession Number: [id number] Procedure: XR chest 2V Ordering Provider: Rj Hernandez D.O. PROCEDURE: XR CHEST 2V INDICATIONS: fever, chemo, cough TECHNIQUE: 2 views of the chest were acquired. COMPARISON: [facility], XR CHEST 2V, 05/31/2020, 7:59. FINDINGS: Surgical changes and devices: None. Lungs and pleura: Lungs are clear. No pleural effusions or pneumothorax. Mediastinum: Mildly tortuous thoracic aorta with aortic arch calcifications are seen. Heart size is enlarged. Bones and chest wall: No suspicious bony abnormalities. Soft tissues appear unremarkable. IMPRESSION: No acute cardiopulmonary pathology. Dictated by: Paulo Curtis M.D. on 06/10/2020 at 20:24 Approved by: Paulo Curtis M.D. on 06/10/2020 at 20:26 Discharge Plan Departure Patient Disposition: Admitted as Observation Clinical Impression: Fever, unknown origin, Cough Admit Date/Time: 06/10/20 23:04 Admit Provider: Esther Thompson
[2020-06-10 21:25] LABS: Neutrophils Absolute Manual 155781 /uL (3000-5900); Nucleated Red Blood Cells 2 #/Diff; Platelet Estimate Decreased on smear; RBC Morphology Normal Morphology; Total Cells Counted 100
[2020-06-10 21:41] LABS: Adenovirus Not Detected (Not Detect); B. parapertussis Not Detected (Not Detecte); Bordetella pertussis Not Detected (Not Detecte); Chlamydophila pneumoniae Not Detected (Not Detect); Coronavirus 229E Not Detected (Not Detect); Coronavirus HKU1 Not Detected (Not Detect); Coronavirus NL 63 Not Detected (Not Detect); Coronavirus OC43 Not Detected (Not Detect); Human Metapneumovirus Not Detected (Not Detect); Human Rhinovirus/Enterovirus Not Detected (Not Detect); Influenza A Not Detected (Not Detect); Influenza B Not Detected (Not Detect); Mycoplasma pneumoniae Not Detected (Not Detect); Parainfluenza Virus 1 Not Detected (Not Detect); Parainfluenza Virus 2 Not Detected (Not Detect); Parainfluenza Virus 3 Not Detected (Not Detect); Parainfluenza Virus 4 Not Detected (Not Detect); Respiratory Syncytial Virus Not Detected (Not Detect); SARS- CoV-2 Not Detected (Not Detecte)
[2020-06-10] MEDS: levoFLOXacin 750 MG/150 ML PIGGYBACK 100 MG IV (22:26)
[2020-06-10 22:30] VITALS: TEMP 37.2
[2020-06-10] MEDS: HYDROXYUREA 500 MG CAPSULE 1000 MG PO (22:30)
[2020-06-10 22:32] LABS: Uric Acid 7.1 mg/dL (3.5-8.5)
[2020-06-10 22:47] VITALS: BP 105/57
[2020-06-10 22:48] VITALS: PULSE 66; O2SAT 94
[2020-06-11] VITALS (8 sets, daily range): BP systolic 108–116; BP diastolic 59–73; PULSE 67–82; RESP 16–18; TEMP 36.4–39.4; O2SAT 94–97; BMI 28.8
--- NOTE | 2020-06-11 00:34 | P.HP_ITS ---
History of Present Illness History of Present Illness Date Patient Seen: 06/11/20 Time Patient Seen: 00:15 Chief complaint: Fever, chronic myloid leukemia Narrative: Damian Godoy S a 65-year-old male who was recently been diagnosed with chronic myeloid leukemia, recently underwent a bone marrow biopsy, and was to have started hydroxyurea today. He presented to the emergency department due to a cough and a fever of 104 taken by the patient. When he was seen in the emergency department his temperature was 103?. He was seen by Dr. De La Torre, oncologist 3 days ago on June 08 and underwent a bone marrow biopsy. He was instructed to start allopurinol 300 mg starting that day and then on Saturday today was to have started hydroxyurea 1000 mg twice daily while they are waiting the results of the bone marrow biopsy. Patient only complains of a dry cough, denies shortness of breath, denies difficulty swallowing, chest pain, nausea or vomiting, dysuria, diarrhea or constipation. He has a nominal medical history, and does not take any prescription medications other than that listed above. In the emergency department they did a viral PCR which was negative, he did present with a white count of 273,000, RBC 3.32, hemoglobin 9.6, hematocrit 29.6, and a platelet count of 161 with 36% bands and 2% blast cells. Sodium was 136, and glucose 130. Chest x-ray was normal. ED provider spoke to Dr. Meeks who recommended observation overnight to monitor for onset of infection and fever control. Patient History Medical History (Updated 06/11/20 @ 00:43 by SUMI Sinclair) No significant medical problems Surgical History (Updated 06/11/20 @ 00:43 by SUMI Sinclair) History of appendectomy Family & Social History Family History (Updated 06/11/20 @ 00:44 by SUMI Sinclair) Mother Old age Father Heart disease History of heart valve replacement Social History: household members spouse Safety & Behavioral: Feels Safe in Current Yes Environment Been Physically Hurt or No Threatened By a Person Tobacco & Substance use: Smoking Status Never smoker alcohol intake former Substance Use Type does not use Meds Home Medications and Allergies Home Medications Medication Instructions Recorded Confirmed Type allopurinol 300 mg PO DAILY #30 tab 06/08/20 Rx diphenhydramine HCl [Benadryl] 25 mg PO BEDTIME PRN 06/08/20 06/08/20 History hydroxyurea 1,000 mg PO BID #100 cap 06/08/20 Rx ibuprofen [Advil] 400 mg PO Q8H PRN 06/08/20 06/08/20 History wzsrpllm-cox-[id number]-herb 124 1 ea PO DAILY 06/08/20 06/08/20 History [Airborne (ascorbic acid)] multivitamin 1 tab PO DAILY 06/08/20 06/08/20 History Allergies Allergy/AdvReac Type Severity Reaction Status Date / Time No Known Drug Allergies Allergy Verified 06/10/20 20:06 Review of Systems Review of Systems ROS: Yes All systems reviewed with the patient and are negative except as otherwise documented Exam Vital Signs (past 8 hours): - 06/10/20 20:00 06/10/20 22:30 06/10/20 22:47 Temperature 103.0 F H 99 F Pulse Rate 86 Respiratory Rate 20 Blood Pressure 114/59 L 105/57 L Pulse Oximetry 94 06/10/20 22:48 06/11/20 00:20 Temperature Pulse Rate 66 67 Respiratory Rate 18 Blood Pressure 110/59 L Pulse Oximetry 94 94 Oxygen Delivery Method Room Air Narrative Exam Narrative: Gen: Alert, oriented, well-developed 65 y.o. male, funmi complected HEENT: normocephalic, atraumatic, conjunctiva clear, sclera non-icteric, oral mucosa pink and moist Neck: supple, full ROM, no JVD, trachea is midline Resp: Lungs CTA, non-labored breathing CV: RRR, no murmur or rubs Abd: soft, non-tender, normoactive BTs Skin: no lesions or rashes, dry and intact Neuro: Alert and oriented X 4 w/no focal deficits. Speech clear and coherent. Extremities: moves all 4 extremities, is ambulatory, negative Evelina?s sign Psyche: normal mood and affect. Objective Labs Result Diagrams: 06/10/20 20:22 06/10/20 20:22 Labs: Laboratory Results - last 24 hr 06/10/20 06/10/20 06/10/20 20:22 20:22 20:22 WBC 273.3 H* RBC 3.32 L Hgb 9.6 L Hct 29.6 L MCV 89.2 MCH 28.8 MCHC 32.3 RDW 17.2 H Plt Count 161 Neut % (Auto) [employer] Lymph % (Auto) [employer] [place] % (Auto) Con[employer] Buck[employer] Unloader Eos % (Auto) [employer]loader Baso % (Auto) [employer]loader Neut # (Auto) Con[employer] Unloader Lymph # (Auto) [employer]loader [place] # (Auto) Concrete Bucket Unloader Eos # (Auto) Concrete Bucket Unloader Baso # (Auto) Concrete Bucket Unloader Total Counted 100 Seg Neutrophils % 21.0 L Band Neutrophils % 36.0 H Lymphocytes % (Manual) 3.0 L Monocytes % (Manual) 1.0 L Eosinophils % (Manual) 2.0 Basophils % (Manual) 1.0 Metamyelocytes % 13.0 H Myelocytes % 15.0 H Promyelocytes % 6.0 H Blast Cells % 2.0 H Neutrophils # (Manual) 489719 H Nucleated RBCs 2 H Platelet Estimate Decreased on smear RBC Morphology Normal morphology Sodium 136 L Potassium 4.2 Chloride 102 Carbon Dioxide 28 BUN 22 H Creatinine 1.14 Estimated GFR > 60.0 BUN/Creatinine Ratio 19.3 Glucose 130 H Lactate 0.6 L Uric Acid Calcium 9.3 Total Bilirubin 0.6 AST 41 ALT 21 Alkaline Phosphatase 74 Total Protein 6.3 Albumin 3.9 Globulin 2.4 Albumin/Globulin Ratio 1.6 Chlamy pneumoniae PCR Adenovirus (PCR) B. pertussis DNA (PCR) B.parapertussis DNA PCR Coronavirus OC43 (PCR) Coronavirus HKU1 (PCR) Coronavirus 229E (PCR) SARS-CoV-2 (PCR) Coronavirus NL63 (PCR) Human Metapneumovir PCR Influenza Type A (PCR) Influenza Type B (PCR) M. pneumoniae (PCR) Parainfluenza 1 (PCR) Parainfluenza 2 (PCR) Parainfluenza 3 (PCR) Parainfluenza 4 (PCR) RSV (PCR) Entero/Rhino (PCR) 06/10/20 06/10/20 20:22 20:47 WBC RBC Hgb Hct MCV MCH MCHC RDW Plt Count Neut % (Auto) Lymph % (Auto) [place] % (Auto) Eos % (Auto) Baso % (Auto) Neut # (Auto) Lymph # (Auto) [place] # (Auto) Eos # (Auto) Baso # (Auto) Total Counted Seg Neutrophils % Band Neutrophils % Lymphocytes % (Manual) Monocytes % (Manual) Eosinophils % (Manual) Basophils % (Manual) Metamyelocytes % Myelocytes % Promyelocytes % Blast Cells % Neutrophils # (Manual) Nucleated RBCs Platelet Estimate RBC Morphology Sodium Potassium Chloride Carbon Dioxide BUN Creatinine Estimated GFR BUN/Creatinine Ratio Glucose Lactate Uric Acid 7.1 Calcium Total Bilirubin AST ALT Alkaline Phosphatase Total Protein Albumin Globulin Albumin/Globulin Ratio Chlamy pneumoniae PCR Not detected Adenovirus (PCR) Not detected B. pertussis DNA (PCR) Not detected B.parapertussis DNA PCR Not detected Coronavirus OC43 (PCR) Not detected Coronavirus HKU1 (PCR) Not detected Coronavirus 229E (PCR) Not detected SARS-CoV-2 (PCR) Not detected Coronavirus NL63 (PCR) Not detected Human Metapneumovir PCR Not detected Influenza Type A (PCR) Not detected Influenza Type B (PCR) Not detected M. pneumoniae (PCR) Not detected Parainfluenza 1 (PCR) Not detected Parainfluenza 2 (PCR) Not detected Parainfluenza 3 (PCR) Not detected Parainfluenza 4 (PCR) Not detected RSV (PCR) Not detected Entero/Rhino (PCR) Not detected Assessment & Plan Assessment & Plan narrative: Damian Godoy will be kept overnight in observation for fever control and monitoring for infection. Chronic myeloid leukemia, present on admission -He has a white count of 274 thousand with elevated blasts -Initiated hydroxyurea taking both doses today and will continue. He took his evening dose with his own medication in the ED Fever of unknown origin -Oral tylenol and ibupropofen q 3 hours for fevers -CBC in the am VTE prophylaxis: Wells risk score: 1 Enoxaparin 40 mg subQ daily Consults: none though Dr. Meeks is available to speak to over the weekend if need be. Patient is observation status as his stay is not likely to exceed 2 midnights. FEN: Saline lock, general diet, CMP and magnesium in the am. Dispo: probable discharge to home Code Status: full code as discussed with patient COVID-19 COVID-19 status: Negative Result date/Date tested (Pos, Neg/Pending): 06/11/20 Scores Wells' Criteria for PE Clinical signs and symptoms of DVT: No PE is #1 Dx or equally likely: No Heart rate > 100: No Immobilization at least 3 days or surg in previous 4 weeks: No History of PE or DVT: No Hemoptysis: No Malignancy w/Treatment within 6 months or palliative: Yes Wells' PE Score total: 1 Quality MIPS - Admit Advanced Care Plan / Current Medications Measures: #47 ? Advanced Care Plan Clinician documentation instruction: document at admission. X I confirmed that the patient's Advance Care Plan is present, code status is documented, or surrogate decision maker is listed in the patient?s medical record. If Yes, Stop Here [] The patient?s Advance Care plan is not present because: (select) [MIPS PERFORMANCE EXCEPTION/EXCLUSION] [] I confirmed today that the patient does not wish or was not able to name a surrogate decision maker or provide an Advance Care Plan. [] Hospice care is currently being provided or has been provided this calendar year [] I did NOT confirm today the presence of an Advance Care Plan or surrogate decision maker documented within the patient's medical record. [DOES NOT SATISFY MIPS PERFORMANCE] #130 - Documentation of Current Medications in the Medical Record Clinician documentation instruction: use macro the first time you see a patient. X I have utilized all available immediate resources to obtain, update, or review the patient?s current medications. If Yes, Stop Here [] The patient is not eligible for medication reconciliation; the patient is in an emergent medical situation where delaying treatment would jeopardize the patient?s health. [MIPS PERFORMANCE EXCEPTION/EXCLUSION] [] I did NOT confirm, update or review the patient's current list of medications today. [DOES NOT SATISFY MIPS PERFORMANCE] MIPS - CL Central Venous Catheter Placement Measure: #76 ? Prevention of Central Venous Catheter (CVC) ? Related Bloodstream Infection Clinician documentation instruction: use macro every time you place a central line. [] All elements of Maximal Sterile Barrier Technique, including hand hygiene, skin prep, and sterile ultrasound technique (if used) were followed. [SATISFIES MIPS PERFORMANCE] If Yes, Stop Here [] If ?No?, the medical reason all elements were NOT used for medical reason [] (ex. emergent condition). [] Maximal Sterile Barrier Technique was not followed, no reason provided [DOES NOT SATISFY MIPS PERFORMANCE] MIPS - DC Heart Failure Measures: #5 - Heart Failure (HF): Angiotensin-Converting Enzyme (SHERINE) Inhibitor or Angiotensin Receptor Salima (ARB) Therapy for Left Ventricular Systolic Dysfunction (LVSD) and #8 - Heart Failure (HF): Beta-Salima Therapy for Left Ventricular Systolic Dysfunction (LVSD) Clinician documentation instruction: use macro at every CHF discharge. [] The patient has current or prior documentation of left ventricular ejection fraction (LVEF) less than 40%, or moderate or severely depressed left ventricular systolic function. Answer both: [SATISFIES MIPS PERFORMANCE] [] The patient was prescribed or already taking an Angiotensin-Converting Enzyme (SHERINE) Inhibitor, or Angiotensin Receptor Salima (ARB). [] The patient was prescribed or already taking a beta-salima. If Yes to Both, Stop Here [] Patient not prescribed/taking: [MIPS PERFORMANCE EXCEPTION/EXCLUSION] [] SHERINE or ARB for medical/patient/system reason(s) including [] (ex. allergy, intolerance, contraindication) [] Beta-salima for medical/patient/system reason(s) including [] (ex. allergy, intolerance, contraindication) [] Patient not prescribed/taking: [DOES NOT SATISFY MIPS PERFORMANCE] [] SHERINE or ARB, no reason given [] Beta-salima, no reason given
[2020-06-11 02:22] LABS: Acinetobacter baumannii Not Detected (Not Detect); Candida albicans Not Detected (Not Detect); Candida glabrata Not Detected (Not Detect); Candida krusei Not Detected (Not Detect); Candida parapsilosis Not Detected (Not Detect); Candida tropicalis Not Detected (Not Detect); E. coli Not Detected (Not Detect); Enterobacter cloacae complex Not Detected (Not Detect); Enterobacteriaceae species Not Detected (Not Detect); Enterococcus species Not Detected (Not Detect); Haemophilus influenzae Not Detected (Not Detect); Listeria monocytogenes Not Detected (Not Detect); Neisseria meningitidis Not Detected (Not Detect); Proteus species Not Detected (Not Detect); Pseudomonas aeruginosa Not Detected (Not Detect); Serratia marcescens Not Detected (Not Detect); Staphylococcus species Not Detected (Not Detect); Streptococcus agalactiae (Gr B Not Detected (Not Detect); Streptococcus pneumonia Not Detected (Not Detect); Streptococcus pyogenes (Gr A) Not Detected (Not Detect); Streptococcus species Not Detected (Not Detect)
[2020-06-11] MEDS: ACETAMINOPHEN 325 MG TABLET 650 MG PO (04:47)
--- NOTE | 2020-06-11 05:31 | PC.NURSE ---
pt was admitted to floor around 0200 and vitals were stable, previously pt had been running a fever before he came in and said he had taken tylenol at home, pt temp was only 97.5 at admission, pt was able to sleep for a few hours and then started to feel feverish again around 0500, temp went up to 102.9 so nurse gave pt PRN Tylenol 650mg and temp was rechecked about 30 mins later and temp came down to 100.8. Nurse notified hospitalist and was not given any new orders and was told to continue alternating PRN Ibuprofen and Tylenol as needed.
[2020-06-11 07:42] LABS: Hematocrit 28.3 % (41-53); Hemoglobin 9.1 g/dL (13.5-17.5); Mean Corpuscular HGB Conc 32.2 % (30-36); Mean Corpuscular Hemoglobin 28.4 PG (26-34); Mean Corpuscular Volume 88.2 fL (80-100); Platelet Count 142 X10^3/uL (150-400); Red Blood Cell Count 3.21 X10^6/uL (4.5-5.9)
[2020-06-11 07:43] LABS: Add Manual Diff / Slide Review YES
[2020-06-11 07:47] LABS: White Blood Cell Count 233.2 X10^3/uL (4.5-11.0)
[2020-06-11 07:48] LABS: BUN Creatinine Ratio 18.6 (6-22); Blood Urea Nitrogen 18 mg/dL (9-20); Calcium 8.7 mg/dL (8.4-10.2); Carbon Dioxide 28 mmol/L (22-32); Chloride 102 mmol/L (98-107); Estimated Glomerular Filt Rate > 60.0 mL/min (>60); Glucose 111 mg/dL (80-110); HEMOLYSIS < 15 (0-50); Magnesium 2.1 mg/dL (1.6-2.3); Potassium 3.9 mmol/L (3.4-5.1); Sodium 134 mmol/L (137-145)
[2020-06-11 08:24] LABS: Neutrophils Absolute Manual 165572 /uL (3000-5900); Nucleated Red Blood Cells 1 #/Diff; Total Cells Counted 100
[2020-06-11 08:27] LABS: Anisocytosis 2+; Microcytosis 1+; Spherocytes 1+; Toxic Granulation Present
[2020-06-11] MEDS: HYDROXYUREA 500 MG CAPSULE 1000 MG PO (09:16)
[2020-06-11] MEDS: allopurinoL 300 MG TABLET PO (09:17)
[2020-06-11] MEDS: ENOXAPARIN 40 MG/0.4 ML SYRINGE SUBCUT (09:23)
--- NOTE | 2020-06-11 09:31 | DI.CT.S_ITS ---
PROCEDURE: CT CHEST WO CON INDICATIONS: cough TECHNIQUE: Noncontrast 5 mm thick sections acquired from the pulmonary apices to the posterior costophrenic angles. 1 mm lung window, 5 mm thick coronal and sagittal and 7 mm axial MIP reformats were then acquired. For radiation dose reduction, the following was used: automated exposure control, adjustment of mA and/or kV according to patient size. COMPARISON: [facility], CT, CT ABDOMEN PELVIS W CON, 05/01/2019, 12:34. FINDINGS: Image quality: Excellent. Lungs and pleura: No acute air space opacities. No pleural effusions or pneumothorax. Central and peripheral airways are patent and normal in caliber. Mediastinum: Normal heart size. No pericardial effusion. Three-vessel coronary atherosclerotic calcifications. Normal caliber thoracic aorta and main pulmonary trunk. Aortic atherosclerosis. No threshold enlarged mediastinal or hilar lymph node. Bones and chest wall: No suspicious lytic or blastic chest wall lesion. No threshold enlarged axillary lymph nodes by CT size criteria. Abdomen: Massive splenomegaly has developed in the interval since April 2019 exam. The spleen currently measures approximately 21 centimeters maximum AP dimension compared with just 10 centimeters on the prior study. IMPRESSION: No acute finding in the chest. Massive splenomegaly developed in the interval since April [address] abdomen and pelvis with IV contrast is recommended for further evaluation. Dictated by: Lexx Alegria M.D. on 06/11/2020 at 10:08 Approved by: Lexx Alegria M.D. on 06/11/2020 at 10:12
--- NOTE | 2020-06-11 13:24 | PC.NURSE ---
Addendum entered by Susi Farah R.N. 06/11/20 13:32: Pt refused wheelchair, ambulated to ER entrance accompanied by RN. Original Note: Discharge education given to pt, discussed- f/u appts, worsening symptoms, medications, s/s of stroke, reasons to seek medical attention. Pt expressed understanding of instructions. IV removed, intact, tolerated well. All belongings packed. Pt's spouse arrived for apple picking supervisor, pt left ambulatory to POV assisted by RN.
--- NOTE | 2020-06-11 15:54 | PM.DS.1 ---
History of Present Illness History of Present Illness Chief complaint: Fever, chronic myloid leukemia Narrative: Per H and P by Esther Thompson on 06/10: Damian Godoy S a 65-year-old male who was recently been diagnosed with chronic myeloid leukemia, recently underwent a bone marrow biopsy, and was to have started hydroxyurea today. He presented to the emergency department due to a cough and a fever of 104 taken by the patient. When he was seen in the emergency department his temperature was 103?. He was seen by Dr. De La Torre, oncologist 3 days ago on June 08 and underwent a bone marrow biopsy. He was instructed to start allopurinol 300 mg starting that day and then on Saturday today was to have started hydroxyurea 1000 mg twice daily while they are waiting the results of the bone marrow biopsy. Patient only complains of a dry cough, denies shortness of breath, denies difficulty swallowing, chest pain, nausea or vomiting, dysuria, diarrhea or constipation. He has a nominal medical history, and does not take any prescription medications other than that listed above. In the emergency department they did a viral PCR which was negative, he did present with a white count of 273,000, RBC 3.32, hemoglobin 9.6, hematocrit 29.6, and a platelet count of 161 with 36% bands and 2% blast cells. Sodium was 136, and glucose 130. Chest x-ray was normal. ED provider spoke to Dr. Meeks who recommended observation overnight to monitor for onset of infection and fever control. Discharge Providers Provider Date of admission: 06/10/20 23:04 Discharge Date: 06/11/20 Primary care physician: Reba Calderon PA-C Discharge provider: Abraham Quezada MD Summary Hospital Course Discharge Diagnosis: 1. Fever, unclear etiology, resolved without antibiotics 2. Presumed CML- pending full bone marrow biopsy results 3. Pancytopenia, mild 4. Chronic cough - likely postnasal drip Hospital Course: Mr. Godoy was admitted with fevers. He otherwise was only complaining of a mild, nonproductive cough that was chronic. He had no other localizaing symptoms. No productive cough, SOB, abdominal pain, nausea, vomiting, or diarrhea, headache, no pain at bone marrow biopsy site. Workup was done and was negative for urine infection, COVID negative. Exam did not show erythema at biopsy site. Chest xray and CT chest showed no acute process. Patient defervesced without antibiotics. He initially presented with a white count of 274 and was decreased to 233 on discharge. Discussed with covering oncologist for Dr. Urias who recommended continuing on allopurinol and hyddroxyurea and close follow up with Dr. Urias. Etiology of fever is unclear whether it is a reaction to his hematologic malignancy, or a viral syndrome. He was counselled to return if he felt worsening symptoms. Status at Discharge Cognitive/behavioral status at discharge: oriented Functional status at discharge: independent ambulation Overall status at discharge: patient is back to baseline Time Spent with Patient Time spent: Greater than 30 minutes Exam Vital Signs (past 8 hours): - 06/11/20 08:00 06/11/20 12:30 Temperature 99.1 F 99.1 F Pulse Rate 70 71 Respiratory Rate 16 16 Blood Pressure 108/68 116/73 Pulse Oximetry 95 96 Oxygen Delivery Method Room Air Oxygen Flow Rate 0 Narrative Exam Narrative: Gen: Alert, oriented, no acute distress HEENT: normocephalic, atraumatic, conjunctiva clear, sclera non-icteric, oral mucosa pink and moist Neck: supple, full ROM, no JVD, trachea is midline Resp: Lungs CTA, non-labored breathing CV: RRR, no murmur or rubs Abd: soft, non-tender, normoactive BTs Skin: no lesions or rashes, dry and intact Neuro: Alert and oriented X 4 w/no focal deficits. Speech clear and coherent. Extremities: moves all 4 extremities, is ambulatory, negative Evelina?s sign Psyche: normal mood and affect. Objective Labs Result Diagrams: 06/11/20 07:20 06/11/20 07:20 Labs: Laboratory Results - last 24 hr 06/10/20 06/10/20 06/10/20 20:22 20:22 20:22 WBC 273.3 H* RBC 3.32 L Hgb 9.6 L Hct 29.6 L MCV 89.2 MCH 28.8 MCHC 32.3 RDW 17.2 H Plt Count 161 Neut % (Auto) Power Shovel Engineer Lymph % (Auto) Power Shovel Engineer [place] % (Auto) Power Shovel Engineer Eos % (Auto) Power Shovel Engineer Baso % (Auto) Power Shovel Engineer Neut # (Auto) Power Shovel Engineer Lymph # (Auto) Power Shovel Engineer [place] # (Auto) Power Shovel Engineer Eos # (Auto) Power Shovel Engineer Baso # (Auto) Power Shovel Engineer Total Counted 100 Seg Neutrophils % 21.0 L Band Neutrophils % 36.0 H Lymphocytes % (Manual) 3.0 L Atypical Lymphs % Monocytes % (Manual) 1.0 L Eosinophils % (Manual) 2.0 Basophils % (Manual) 1.0 Metamyelocytes % 13.0 H Myelocytes % 15.0 H Promyelocytes % 6.0 H Blast Cells % 2.0 H Neutrophils # (Manual) 310919 H Nucleated RBCs 2 H Toxic Granulation Platelet Estimate Decreased on smear RBC Morphology Normal morphology Anisocytosis Microcytosis Spherocytes Sodium 136 L Potassium 4.2 Chloride 102 Carbon Dioxide 28 BUN 22 H Creatinine 1.14 Estimated GFR > 60.0 BUN/Creatinine Ratio 19.3 Glucose 130 H Lactate 0.6 L Uric Acid Calcium 9.3 Magnesium Total Bilirubin 0.6 AST 41 ALT 21 Alkaline Phosphatase 74 Total Protein 6.3 Albumin 3.9 Globulin 2.4 Albumin/Globulin Ratio 1.6 A. baumannii (PCR) Chlamy pneumoniae PCR Adenovirus (PCR) B. pertussis DNA (PCR) B.parapertussis DNA PCR Bianca albicans (PCR) C. glabrata (PCR) C. krusei (PCR) C. parapsilosis (PCR) C. tropicalis (PCR) Coronavirus OC43 (PCR) Coronavirus HKU1 (PCR) Coronavirus 229E (PCR) SARS-CoV-2 (PCR) Coronavirus NL63 (PCR) Enterobacteriac sp PCR E. cloacae complex PCR Enterococcus sp PCR E. coli (PCR) H. influenzae (PCR) Human Metapneumovir PCR Influenza Type A (PCR) Influenza Type B (PCR) Klebsiella oxytoca PCR Klebsiella pneumoniae List. monocytogenes PCR M. pneumoniae (PCR) N. meningitidis (PCR) Parainfluenza 1 (PCR) Parainfluenza 2 (PCR) Parainfluenza 3 (PCR) Parainfluenza 4 (PCR) Proteus species (PCR) RSV (PCR) Entero/Rhino (PCR) Serratia marcescens PCR Staphylococcus sp PCR Staph aureus (PCR) mecA-Methicil Res Gene Streptococcus sp PCR Group A Strep (PCR) Strep agalactiae (PCR) Strep pneumoniae (PCR) P. aeruginosa (PCR) Kathleen/B-Vanco Res Genes KPC-Carbap Res Gene PCR 06/10/20 06/10/20 06/11/20 20:22 20:47 07:20 WBC 233.2 H* RBC 3.21 L Hgb 9.1 L Hct 28.3 L MCV 88.2 MCH 28.4 MCHC 32.2 RDW 17.0 H Plt Count 142 L Neut % (Auto) Not Reportable Lymph % (Auto) Not Reportable [place] % (Auto) Not Reportable Eos % (Auto) Not Reportable Baso % (Auto) Not Reportable Neut # (Auto) Lymph # (Auto) Not Reportable [place] # (Auto) Not Reportable Eos # (Auto) Baso # (Auto) Not Reportable Total Counted 100 Seg Neutrophils % 27.0 L Band Neutrophils % 44.0 H Lymphocytes % (Manual) 2.0 L Atypical Lymphs % 1.0 H Monocytes % (Manual) 4.0 Eosinophils % (Manual) 1.0 L Basophils % (Manual) 2.0 H Metamyelocytes % 7.0 H Myelocytes % 9.0 H Promyelocytes % 3.0 H Blast Cells % Neutrophils # (Manual) 720708 H Nucleated RBCs 1 H Toxic Granulation Present H Platelet Estimate RBC Morphology See below Anisocytosis 2+ H Microcytosis 1+ H Spherocytes 1+ H Sodium Potassium Chloride Carbon Dioxide BUN Creatinine Estimated GFR BUN/Creatinine Ratio Glucose Lactate Uric Acid 7.1 Calcium Magnesium Total Bilirubin AST ALT Alkaline Phosphatase Total Protein Albumin Globulin Albumin/Globulin Ratio A. baumannii (PCR) Chlamy pneumoniae PCR Not detected Adenovirus (PCR) Not detected B. pertussis DNA (PCR) Not detected B.parapertussis DNA PCR Not detected Bianca albicans (PCR) C. glabrata (PCR) C. krusei (PCR) C. parapsilosis (PCR) C. tropicalis (PCR) Coronavirus OC43 (PCR) Not detected Coronavirus HKU1 (PCR) Not detected Coronavirus 229E (PCR) Not detected SARS-CoV-2 (PCR) Not detected Coronavirus NL63 (PCR) Not detected Enterobacteriac sp PCR E. cloacae complex PCR Enterococcus sp PCR E. coli (PCR) H. influenzae (PCR) Human Metapneumovir PCR Not detected Influenza Type A (PCR) Not detected Influenza Type B (PCR) Not detected Klebsiella oxytoca PCR Klebsiella pneumoniae List. monocytogenes PCR M. pneumoniae (PCR) Not detected N. meningitidis (PCR) Parainfluenza 1 (PCR) Not detected Parainfluenza 2 (PCR) Not detected Parainfluenza 3 (PCR) Not detected Parainfluenza 4 (PCR) Not detected Proteus species (PCR) RSV (PCR) Not detected Entero/Rhino (PCR) Not detected Serratia marcescens PCR Staphylococcus sp PCR Staph aureus (PCR) mecA-Methicil Res Gene Streptococcus sp PCR Group A Strep (PCR) Strep agalactiae (PCR) Strep pneumoniae (PCR) P. aeruginosa (PCR) Kathleen/B-Vanco Res Genes KPC-Carbap Res Gene PCR 06/11/20 06/11/20 07:20 20:58 WBC RBC Hgb Hct MCV MCH MCHC RDW Plt Count Neut % (Auto) Lymph % (Auto) [place] % (Auto) Eos % (Auto) Baso % (Auto) Neut # (Auto) Lymph # (Auto) [place] # (Auto) Eos # (Auto) Baso # (Auto) Total Counted Seg Neutrophils % Band Neutrophils % Lymphocytes % (Manual) Atypical Lymphs % Monocytes % (Manual) Eosinophils % (Manual) Basophils % (Manual) Metamyelocytes % Myelocytes % Promyelocytes % Blast Cells % Neutrophils # (Manual) Nucleated RBCs Toxic Granulation Platelet Estimate RBC Morphology Anisocytosis Microcytosis Spherocytes Sodium 134 L Potassium 3.9 Chloride 102 Carbon Dioxide 28 BUN 18 Creatinine 0.97 Estimated GFR > 60.0 BUN/Creatinine Ratio 18.6 Glucose 111 H Lactate Uric Acid Calcium 8.7 Magnesium 2.1 Total Bilirubin AST ALT Alkaline Phosphatase Total Protein Albumin Globulin Albumin/Globulin Ratio A. baumannii (PCR) Not detected Chlamy pneumoniae PCR Adenovirus (PCR) B. pertussis DNA (PCR) B.parapertussis DNA PCR Bianca albicans (PCR) Not detected C. glabrata (PCR) Not detected C. krusei (PCR) Not detected C. parapsilosis (PCR) Not detected C. tropicalis (PCR) Not detected Coronavirus OC43 (PCR) Coronavirus HKU1 (PCR) Coronavirus 229E (PCR) SARS-CoV-2 (PCR) Coronavirus NL63 (PCR) Enterobacteriac sp PCR Not detected E. cloacae complex PCR Not detected Enterococcus sp PCR Not detected E. coli (PCR) Not detected H. influenzae (PCR) Not detected Human Metapneumovir PCR Influenza Type A (PCR) Influenza Type B (PCR) Klebsiella oxytoca PCR Not detected Klebsiella pneumoniae Not detected List. monocytogenes PCR Not detected M. pneumoniae (PCR) N. meningitidis (PCR) Not detected Parainfluenza 1 (PCR) Parainfluenza 2 (PCR) Parainfluenza 3 (PCR) Parainfluenza 4 (PCR) Proteus species (PCR) Not detected RSV (PCR) Entero/Rhino (PCR) Serratia marcescens PCR Not detected Staphylococcus sp PCR Not detected Staph aureus (PCR) Not detected mecA-Methicil Res Gene Not Reportable Streptococcus sp PCR Not detected Group A Strep (PCR) Not detected Strep agalactiae (PCR) Not detected Strep pneumoniae (PCR) Not detected P. aeruginosa (PCR) Not detected Kathleen/B-Vanco Res Genes Not Reportable KPC-Carbap Res Gene PCR Not Reportable [facility] Medical History (Updated 06/11/20 @ 00:43 by SUMI Sinclair) No significant medical problems Surgical History (Updated 06/11/20 @ 00:43 by SUMI Sinclair) History of appendectomy Family History (Updated 06/11/20 @ 00:45 by SUMI Sinclair) Mother Old age Father Heart disease History of heart valve replacement Social History household members: spouse Smoking Status: Never smoker alcohol intake: former Discharge Plan Discharge Plan Patient Disposition: Home Provider Discharge Comment: Mr. Godoy came in with a fever. He has recent workup done for possible CML. He had workup done for source of infection. This included a negative chest xray, and unremarkable CT chest. Negative urine studies. Negative COVID. His bone marrow biopsy site had no erythema. His fever resolved without need for antibiotics. On day of discharge he was feeling back to his baseline. His WBC at decreased from 274k to 233k. He is recommended to continue on allopurinol and hydroxyurea at prescribed doses and follow up with his oncologist, Dr. Urias. Discharge orders & Medications Prescriptions: Continued diphenhydramine HCl [Benadryl] 25 mg Capsule 25 mg PO BEDTIME PRN (Reason: Insomnia) RF: 0 ibuprofen [Advil] 200 mg Tablet 400 mg PO Q8H PRN (Reason: Pain (Scale Score 4-6)) RF: 0 multivitamin Tablet 1 tab PO DAILY RF: 0 Airborne (ascorbic acid) 1,000-350 mg Powder Effervescent In Packet 1 ea PO DAILY RF: 0 hydroxyurea 500 mg Capsule 1,000 mg PO BID Qty: 100 RF: 0 allopurinol 300 mg Tablet 300 mg PO DAILY Qty: 30 RF: 0 Follow up/Referrals: Reba Calderon PA-C [Primary Care Provider] - Discharge Health Status Multidrug resistant organism: No MDRO Diet/Activity/Treatments Diet: Regular Activity: as tolerated Skin/Wound/Dressing Care Report to your healthcare provider any signs of infection, such as:: chills, fever, night sweats, increased pain and unusual redness Discharge Data Primary Care Provider: Reba Calderon Attending Provider: Esther Thompson MIPS - Admit Advanced Care Plan / Current Medications Measures: #47 ? Advanced Care Plan Clinician documentation instruction: document at admission. [] I confirmed that the patient's Advance Care Plan is present, code status is documented, or surrogate decision maker is listed in the patient?s medical record. [SATISFIES MIPS PERFORMANCE] If Yes, Stop Here [] The patient?s Advance Care plan is not present because: (select) [MIPS PERFORMANCE EXCEPTION/EXCLUSION] [] I confirmed today that the patient does not wish or was not able to name a surrogate decision maker or provide an Advance Care Plan. [] Hospice care is currently being provided or has been provided this calendar year [] I did NOT confirm today the presence of an Advance Care Plan or surrogate decision maker documented within the patient's medical record. [DOES NOT SATISFY MIPS PERFORMANCE] #130 - Documentation of Current Medications in the Medical Record Clinician documentation instruction: use macro the first time you see a patient. [] I have utilized all available immediate resources to obtain, update, or review the patient?s current medications. [SATISFIES MIPS PERFORMANCE] If Yes, Stop Here [] The patient is not eligible for medication reconciliation; the patient is in an emergent medical situation where delaying treatment would jeopardize the patient?s health. [MIPS PERFORMANCE EXCEPTION/EXCLUSION] [] I did NOT confirm, update or review the patient's current list of medications today. [DOES NOT SATISFY MIPS PERFORMANCE] MIPS - CL Central Venous Catheter Placement Measure: #76 ? Prevention of Central Venous Catheter (CVC) ? Related Bloodstream Infection Clinician documentation instruction: use macro every time you place a central line. [] All elements of Maximal Sterile Barrier Technique, including hand hygiene, skin prep, and sterile ultrasound technique (if used) were followed. [SATISFIES MIPS PERFORMANCE] If Yes, Stop Here [] If ?No?, the medical reason all elements were NOT used for medical reason [] (ex. emergent condition). [] Maximal Sterile Barrier Technique was not followed, no reason provided [DOES NOT SATISFY MIPS PERFORMANCE] MIPS - DC Heart Failure Measures: #5 - Heart Failure (HF): Angiotensin-Converting Enzyme (SHERINE) Inhibitor or Angiotensin Receptor Salima (ARB) Therapy for Left Ventricular Systolic Dysfunction (LVSD) and #8 - Heart Failure (HF): Beta-Salima Therapy for Left Ventricular Systolic Dysfunction (LVSD) Clinician documentation instruction: use macro at every CHF discharge. [] The patient has current or prior documentation of left ventricular ejection fraction (LVEF) less than 40%, or moderate or severely depressed left ventricular systolic function. Answer both: [SATISFIES MIPS PERFORMANCE] [] The patient was prescribed or already taking an Angiotensin-Converting Enzyme (SHERINE) Inhibitor, or Angiotensin Receptor Salima (ARB). [] The patient was prescribed or already taking a beta-salima. If Yes to Both, Stop Here [] Patient not prescribed/taking: [MIPS PERFORMANCE EXCEPTION/EXCLUSION] [] SHERINE or ARB for medical/patient/system reason(s) including [] (ex. allergy, intolerance, contraindication) [] Beta-salima for medical/patient/system reason(s) including [] (ex. allergy, intolerance, contraindication) [] Patient not prescribed/taking: [DOES NOT SATISFY MIPS PERFORMANCE] [] SHERINE or ARB, no reason given [] Beta-salima, no reason given
== END 2020-06-11 13:33 | disposition home or self-care (01) ==
LOC: ED 23:00 → AC 23:05
PROVIDERS: Admitting Provider Nurse Practitioner Family; Emergency Provider Emergency Medicine; PCP Physician Assistant; Referring Provider Emergency Medicine; Visit Provider Nurse Practitioner Family
DX: R50.9 Fever, unspecified (principal); C92.10 Chronic myeloid leukemia, BCR/ABL-positive, not having achieved remission; D61.818 Other pancytopenia; Z20.822 Contact with and (suspected) exposure to COVID-19
CPT/HCPCS: 36415; 71046; 71250; 80048; 80053; 81003; 83605; 83735; 84550; 85007; 85025; 87040; 87150; 87205; 87633; 96361; 96365; 96366; 96372; 99285; G0378; J1650; J1956

== ENCOUNTER → 2020-06-27 09:03 | Outpatient (CLI) | payer OTHER, SELFPAY ==
[2020-06-11 00:31] VITALS: BMI 28.8
== END ==
PROVIDERS: PCP Physician Assistant; Referring Provider Internal Medicine; Visit Provider Internal Medicine
DX: Z01.818 Encounter for other preprocedural examination (principal)
CPT/HCPCS: 93005

== ENCOUNTER → 2020-07-25 06:55 | Outpatient (CLI) | payer OTHER, SELFPAY ==
[2020-06-11 00:31] VITALS: BMI 28.8
[2020-07-25 08:23] LABS: Hematocrit 37.6 % (41-53); Hemoglobin 11.9 g/dL (13.5-17.5); Mean Corpuscular HGB Conc 31.5 % (30-36); Mean Corpuscular Hemoglobin 28.9 PG (26-34); Mean Corpuscular Volume 91.7 fL (80-100); Platelet Count 260 X10^3/uL (150-400); Red Cell Distribution Width 21.3 % (11.6-14.8)
[2020-07-25 08:25] LABS: Add Manual Diff / Slide Review YES; White Blood Cell Count 47.8 X10^3/uL (4.5-11.0)
[2020-07-25 08:55] LABS: Neutrophils Absolute Manual 34416 /uL (3000-5900); Total Cells Counted 50
[2020-07-25 08:56] LABS: Anisocytosis 3+
== END ==
PROVIDERS: PCP Physician Assistant; Referring Provider Internal Medicine; Visit Provider Internal Medicine
DX: C92.10 Chronic myeloid leukemia, BCR/ABL-positive, not having achieved remission (principal)
CPT/HCPCS: 36415; 85007; 85025

== ENCOUNTER → 2021-01-30 16:04 | Outpatient (CLI) | payer MEDICARE, SELFPAY ==
[2020-06-11 00:31] VITALS: BMI 28.8
[2021-01-30 16:29] LABS: Add Manual Diff / Slide Review NO; Basophils Absolute Auto 0 /uL (0-100); Basophils Percent Auto 0.3 % (0-2); Eosinophils Absolute Auto 200 /uL (0-450); Eosinophils Percent Auto 2.9 % (2-4); Hematocrit 37.4 % (41-53); Hemoglobin 12.5 g/dL (13.5-17.5); Lymphocytes Absolute Auto 1900 /uL (1100-4500); Lymphocytes Percent Auto 22.5 % (25-40); Mean Corpuscular HGB Conc 33.5 % (30-36); Mean Corpuscular Hemoglobin 28.8 PG (26-34); Mean Corpuscular Volume 86.1 fL (80-100); Monocytes Absolute Auto 500 /uL (0-900); Monocytes Percent Auto 6.2 % (3-14); Neutrophils Absolute Auto 5800 /uL (1500-7000); Neutrophils Percent Auto 68.1 % (50-75); Platelet Count 256 X10^3/uL (150-400); Red Blood Cell Count 4.34 X10^6/uL (4.5-5.9); White Blood Cell Count 8.5 X10^3/uL (4.5-11.0)
[2021-01-30 16:43] LABS: Alanine Aminotransferase 21 IU/L (<50); Albumin 4.2 g/dL (3.5-5.0); Albumin Globulin Ratio 1.9 (1.0-2.8); Alkaline Phosphatase 48 U/L (38-126); Aspartate Aminotransferase 35 IU/L (17-59); BUN Creatinine Ratio 20.2 (6-22); Bilirubin Total 1.1 mg/dL (0.2-1.3); Blood Urea Nitrogen 20 mg/dL (9-20); Calcium 9.1 mg/dL (8.4-10.2); Carbon Dioxide 27 mmol/L (22-32); Chloride 107 mmol/L (98-107); Estimated Glomerular Filt Rate > 60.0 mL/min (>60); Globulin 2.2 g/dL (1.7-4.1); Glucose 93 mg/dL (80-110); HEMOLYSIS < 15 (0-50); Potassium 3.9 mmol/L (3.4-5.1); Sodium 140 mmol/L (137-145); Total Protein 6.4 g/dL (6.3-8.2)
[2021-02-05 10:25] LABS: Interpretation Positive (.); e13a2(b2a2) transcript 4.6512 % (.)
== END ==
PROVIDERS: PCP Physician Assistant; Referring Provider Internal Medicine Medical Oncology; Visit Provider Internal Medicine Medical Oncology
DX: C92.10 Chronic myeloid leukemia, BCR/ABL-positive, not having achieved remission (principal)
CPT/HCPCS: 36415; 80053; 81206; 81207; 85025